=== PATIENT | female | born 1955 | race Caucasian/White ===

== ENCOUNTER → 2016-10-21 | Outpatient (CLI) | payer OTHER ==
--- NOTE | 2016-10-21 09:07 | US ---
EXAMINATION TYPE: US thyroid st tissue head/neck DATE OF EXAM: 10/21/2016 8:29 AM COMPARISON: NONE CLINICAL HISTORY: E04.1 thyroid nodule. GLAND SIZE: Right Lobe: 5.7 x 1.4 x 1.3 cm Overall Parenchyma: homogeneous Left Lobe: 4.7 x 1.5 x 1.2 cm Overall Parenchyma: homogeneous Isthmus Thickness: 0.4 cm NODULES RIGHT: # of nodules measured on right: 1 1. 0.6 X 0.3 x 0.6 cm hypoechoic solid nodule at the lower pole with well-defined margins. This no dule is wider than tall and shows intranodular vascularity. No prior here. LEFT: # of nodules measured on left: 2 1. 0.7 X 0.6 x 0.9 cm anechoic cystic nodule at the upper pole with well-defined margins. This nod ule is wider than tall and shows no intranodular vascularity. 2. 0.9 X 0.7 x 0.7 cm hypoechoic solid nodule at the lower pole with well-defined margins. This nod ule is wider than tall and shows intranodular vascularity. ISTHMUS: # of nodules measured in the isthmus: 2 1. 0.6 X 0.3 x 0.6 cm hypoechoic solid nodule at the right isthmus with well-defined margins. This nodule is wider than tall and shows intranodular vascularity. 2. 1.4 X 0.5 x 1.4 cm isoechoic, anechoic mixed nodule at the left isthmus with well-defined margins . This nodule is wider than tall and shows intranodular vascularity. TECHNOLOGIST IMPRESSION: Bilateral neck scanned, no abnormal lymphadenopathy noted. IMPRESSION: MULTINODULAR GOITER. CONSIDERATION MIGHT BE GIVEN TO BIOPSYING THE LESION IN THE ISTHMUS GREATER THAN 1 CM.
--- NOTE | 2016-10-21 10:00 | ECHOF ---
Referral Reason:R07.69 chest pain MEASUREMENTS -------- HEIGHT: 162.6 cm WEIGHT: 68.0 kg BP: 123/67 RVIDd: 2.1 cm (< 3.3) IVSd: 0.8 cm (0.6 - 1.1) LVIDd: 4.1 cm (3.9 - 5.3) LVPWd: 0.8 cm (0.6 - 1.1) IVSs: 1.2 cm LVIDs: 2.8 cm LVPWs: 1.4 cm LA Diam: 2.6 cm (2.7 - 3.8) LAESV Index (A-L): 14.92 ml/m Ao Diam: 2.8 cm (2.0 - 3.7) AV Cusp: 1.8 cm (1.5 - 2.6) MV EXCURSION: 13.015 mm (> 18.000) MV EF SLOPE: 85 mm/s (70 - 150) EPSS: 0.3 cm MV E Raj: 0.67 m/s MV DecT: 228 ms MV A Raj: 0.79 m/s MV E/A Ratio: 0.85 FINDINGS -------- Sinus rhythm. This was a technically good study. The left ventricular size is normal. Left ventricular wall thickness is normal. Overall left ventricular systolic function is normal with, an EF between 60 - 65 %. The right ventricle is normal in size. Normal LA size by volume 22+/-6 ml/m2. The right atrium is normal in size. Aortic valve is trileaflet and is mildly thickened. Mild mitral annular calcification present. The tricuspid valve appears structurally normal. The pulmonic valve is normal. The aortic root size is normal. Normal inferior vena cava with normal inspiratory collapse consistent with estimated right atrial pressure of 5 mmHg. There is no pericardial effusion. CONCLUSIONS -------- 1. Sinus rhythm. 2. Mild mitral annular calcification present. 3. The tricuspid valve appears structurally normal. 4. The pulmonic valve is normal. 5. The aortic root size is normal. 6. Normal inferior vena cava with normal inspiratory collapse consistent with estimated right atrial pressure of 5 mmHg. 7. There is no pericardial effusion. 8. This was a technically good study. 9. The left ventricular size is normal. 10. Left ventricular wall thickness is normal. 11. Overall left ventricular systolic function is normal with, an EF between 60 - 65 %. 12. The right ventricle is normal in size. 13. Normal LA size by volume 22+/-6 ml/m2. 14. The right atrium is normal in size. 15. Aortic valve is trileaflet and is mildly thickened. LINING BRUSHER: Vannesa Pulido RDCS
--- NOTE | 2016-10-22 12:39 | EST ---
DATE OF SERVICE: 10/21/2016 AGE: 61Y SEX: F HT: 64 WT: 150 lbs. Protocol Randell: X Other: Stage: III Dur. of Exercise: 8 minutes *Heart Rate Blood Pressure *Rest: 75 Rest: 116/80 * *Max. Achieved: 138 Maximum BP: 159/69 85% PMHR: 137 100% PMHR: 161 *METS: 9.1 INDICATIONS: Hypertension. MEDICATIONS: Celexa, Zestril. The patient was exercised for a total period of 8 minutes. A peak heart rate of 138 was achieved. Maximum blood pressure of 159/69 mmHg was noted. Resting EKG shows normal sinus rhythm with normal KS interval and QRS duration and normal ST-T waves. No ST segment depression suggestive of ischemia is noted. Did not complain of any chest pain during the test. FINAL IMPRESSION: 1. This exercise test is not suggestive of ischemia. 2. Patient's exercise tolerance is normal. 3. The patient did not complain of any chest pain during the test.
== END | disposition home or self-care (01) ==
LOC: RADUSMAIN 07:55
PROVIDERS: ATTEND Internal Medicine
DX: E04.2 Nontoxic multinodular goiter (principal); I05.8 Other rheumatic mitral valve diseases; I35.8 Other nonrheumatic aortic valve disorders; R07.89 Other chest pain
CPT/HCPCS: 76536; 93017; 93306

== ENCOUNTER → 2017-02-08 | Outpatient (CLI) | payer OTHER ==
--- NOTE | 2017-02-09 11:14 | MM ---
Reason for exam: screening (asymptomatic). Last mammogram was performed 1 year ago. History: Patient is postmenopausal. Family history of breast cancer in maternal aunt at age 80. Physical Findings: A clinical breast exam by your physician is recommended on an annual basis and results should be correlated with mammographic findings. MG Screening Mammo w CAD Bilateral CC and MLO view(s) were taken. Prior study comparison: January 27, 2016, bilateral MG screening mammo w CAD. January 15, 2015, bilateral MG screening mammo w CAD. December 31, 2013, bilateral MG screening mammo w CAD. December 28, 2012, bilateral digital screening mammo w/CAD. There are scattered fibroglandular densities. There is no discrete abnormality. ASSESSMENT: Negative, BI-RAD 1 RECOMMENDATION: Routine screening mammogram of both breasts in 1 year.
== END | disposition home or self-care (01) ==
LOC: RADMAMWWP 09:12
PROVIDERS: ATTEND Internal Medicine
DX: Z12.31 Encounter for screening mammogram for malignant neoplasm of breast (principal)

== ENCOUNTER → 2017-06-07 | Outpatient (CLI) | payer OTHER ==
--- NOTE | 2017-06-07 22:44 | US ---
EXAMINATION TYPE: US thyroid st tissue head/neck DATE OF EXAM: 06/07/2017 COMPARISON: 10/21/2016 CLINICAL HISTORY: 62-year-old female E04.2 MULTIPLE THYROID NODULES. Patient stated had FNA biopsy of one nodule on each neck side at [place] this year - no cancer detected for available thyroid tissue from FNA TECHNIQUE: Multiple sonographic images of the thyroid gland are obtained. FINDINGS: GLAND SIZE: Right Lobe: 5.1 x 1.7 x 1.7 cm Overall Parenchyma: homogenous Left Lobe: 4.9 x 1.5 x 1.7 cm Overall Parenchyma: homogeneous Isthmus Thickness: 0.5 cm NODULES RIGHT: # of nodules measured on right: 2 largest of multiple 1. 0.6 X 0.6 x 0.3 cm hypoechoic mixed nodule at the lower pole with well-defined margins; present with microcalcifications. This nodule is wider than tall and shows no intranodular vascularity. Prior size: 0.6 x 0.3 x 0.6 cm 2. 0.7 X 0.6 x 0.5 cm hypoechoic mixed nodule at the mid pole with poorly defined margins; present w ith calcifications. This nodule is wider than tall and shows no intranodular vascularity. Prior size: no prior LEFT: # of nodules measured on left: 2 largest of multiple 1. 1.1 X 0.9 x 0.7 cm probable colloid cyst. This nodule is wider than tall and shows no intranodul ar vascularity. Prior size: 0.7 x 0.6 x 0.9 cm 2. 0.9 X 0.6 x 0.6 cm hypoechoic mixed nodule at the lower pole with well-defined margins; present w ith microcalcifications. This nodule is wide as is tall and shows intranodular vascularity. Prior size: 0.9 x 0.7 x 0.7 cm ISTHMUS: # of nodules measured in the isthmus: 2 largest 1. 0.5 X 0.5 x 0.3 cm hypoechoic mixed nodule at the lower pole with well-defined margins; present with microcalcifications. This nodule is wider than tall and shows no intranodular vascularity. Prior size: 0.6 x 0.3 x 0.6 cm 2. 1.0 x 0.5 x 0.5cm hyperechoic cystic nodule at the lower left isthmus with well define margins. Th is nodule is wide as is tall and shows no intranodular vascularity. Prior size: 1.4 x 0.5 x 1.4cm Bilateral neck scanned: normal appearing upper left neck node is imaged. IMPRESSION: Multinodular thyroid gland with the largest nodules measured as above. A 7 mm solid nodule with calci fications in the right midpole appears new and can be followed. Others are either cystic and benign o r largely stable.
== END | disposition home or self-care (01) ==
LOC: RADUSWWP 14:41
PROVIDERS: ATTEND Internal Medicine Endocrinology, Diabetes & Metabolism
DX: E04.2 Nontoxic multinodular goiter (principal); E07.89 Other specified disorders of thyroid
CPT/HCPCS: 76536

== ENCOUNTER → 2017-07-06 | Outpatient (CLI) | payer OTHER ==
--- NOTE | 2017-07-06 22:17 | XR ---
EXAMINATION TYPE: XR knee limited RT DATE OF EXAM: 07/06/2017 CLINICAL HISTORY: Pain down right leg. History of right hip fracture. TECHNIQUE: Two views of the right knee are obtained. COMPARISON: None. FINDINGS: There is no acute fracture/dislocation evident in right knee. Osseous structures are somew hat demineralized. The tri-compartment joint spaces appear within normal limits. A fabella is presen t posteriorly. The overlying soft tissue appears unremarkable. IMPRESSION: There is demineralization otherwise fairly unremarkable study.
--- NOTE | 2017-07-06 22:32 | XR ---
EXAMINATION TYPE: XR lumbosacral spine min 4V DATE OF EXAM: 07/06/2017 CLINICAL HISTORY: Lumbago per order. Back pain extending down right leg per patient. TECHNIQUE: Frontal, lateral, and oblique images of the lumbar spine are obtained. COMPARISON: None FINDINGS: There are 5 lumbar type vertebral bodies identified. The lumbar spine shows satisfactory alignment without evidence of acute fracture or dislocation. Vertebral body heights and disk space he ights are within normal limits. There is mild to moderate multilevel anterior spurring in the upper to mid lumbar spine. Spinous process hypertrophy is seen. There is facet arthropathy lower lumbar le vels. The oblique images appear within normal limits. The overlying soft tissue appears unremarkable . IMPRESSION: Multilevel degenerative changes as detailed above.
== END | disposition home or self-care (01) ==
LOC: RADXRYALE 16:02
PROVIDERS: ATTEND Internal Medicine
DX: M47.817 Spondylosis without myelopathy or radiculopathy, lumbosacral region (principal); M25.561 Pain in right knee
CPT/HCPCS: 72110

== ENCOUNTER → 2017-09-15 | Outpatient (CLI) | payer OTHER ==
[2017-09-15 07:49] LABS: HCT 41.9 % (34.0-46.0); HGB 13.7 gm/dL (11.4-16.0); MCH 32.2 pg (25.0-35.0); MCHC 32.6 g/dL (31.0-37.0); MCV 98.9 fL (80.0-100.0); Mean Platelet Volume 8.1; Platelet Count 210 k/uL (150-450); RBC 4.23 m/uL (3.80-5.40); RDW 13.9 % (11.5-15.5)
[2017-09-15 09:19] LABS: Erythrocyte Sedimentation Rate 4 mm/hr (0-20)
--- NOTE | 2017-09-15 10:00 | MR ---
EXAMINATION TYPE: MR lumbar spine wo con DATE OF EXAM: 09/15/2017 COMPARISON: NONE HISTORY: Low back pain, Pain in R lower limb TECHNIQUE: Multiplanar, multisequence images of the lumbar spine were acquired. FINDINGS: The lumbar spine vertebral bodies maintain normal vertebral body height. There is minimal ( grade 1) anterolisthesis of L4 on L5 without pars interarticularis defects. This is likely on a degen erative basis. Bone marrow signal is unremarkable other than scattered T2/T1 hyperintense vertebral b hali hemangiomas and degenerative endplate changes. Conus medullaris is unremarkable terminating at L1 . Of note the liver is decreased in signal and comparison to the paraspinal musculature on T2-weighted images. This finding could be artifactual given technique a wall hematoma necrosis should be consider ed and correlation with serum laboratory values is recommended. L1-L2: There is a small left eccentric broad-based disc bulge present without significant neural fora ryann narrowing or spinal canal stenosis. L2-L3: There is intervertebral disc desiccation and a broad-based disc bulge that is left eccentric m ildly narrowing the left neural foramen. Right neuroforamen and spinal canal are patent. L3-L4: There is a broad-based disc bulge, right eccentric and mildly narrows the right neural foramen . Spinal canal and left neural foramen are patent. Mild facet arthropathy and ligamentum flavum buckl ing are also noted. L4-L5: There is a large broad-based disc bulge creating mild bilateral neural foraminal narrowing. Li gamentum flavum buckling contributes to mild spinal canal stenosis at this level. Minimal facet arthr opathy is also noted. L5-S1: Small broad-based disc bulge is seen without focal disc herniation. No spinal canal stenosis o r neural foraminal narrowing. Lumbar segments are intact. No paraspinal masses are identified. Conus medullaris has a normal appe arance. IMPRESSION: 1. No focal disc herniation. 2. Mild multilevel degenerative disc disease most significant at L4-L5 resulting in mild bilateral ne ural foraminal narrowing and mild spinal canal stenosis. 3. Eccentric disc bulges at L2-L3 and L3-L4 minimally narrowing the left and right neural foramen res pectively. 4. Incidentally noted diffusely decreased signal on the hepatic parenchyma on T2-weighted images. Thi s finding could be artifactual although consideration should also be given to hemochromatosis and cor relation with serum laboratory values is recommended. 5. Grade 1 anterolisthesis of L4 on L5, likely on a degenerative basis.
--- NOTE | 2017-09-15 11:40 | NM ---
EXAMINATION TYPE: NM bone 3 phase DATE OF EXAM: 09/15/2017 COMPARISON: Radiograph 09/06/2017 HISTORY: 62-year-old female with right hip/thigh pain, patient with partial right hip replacement per formed in July 2014. Technique: Triple phase bone scintigraphy was performed following the injection of27.4 mCi Tc 99m MDP . Immediate and pool images followed by 3.25 hours post injection images acquired. FINDINGS: Flow images show no asymmetric hyperemia. Pool images show photopenia on the right relating to the patient's right hip hemiarthroplasty. Delayed images show some focal increased activity at the right acetabular roof and also at the tip of the femoral stem component. Correlating with patient's radiographs show no significant periprostheti c lucency here. IMPRESSION: 1. Some delayed tracer activity along the right acetabular roof could reflect degenerative change inv olving the teller acetabulum. 2. Additional delayed tracer activity at the tip of the femoral stem component. The lack of activity here on pool and flow images and the lack of periprosthetic lucency on the outside radiographs argue against significant loosening at this site.
== END | disposition home or self-care (01) ==
LOC: RADMRIMAIN 06:36
PROVIDERS: ATTEND Orthopaedic Surgery
DX: M48.061 Spinal stenosis, lumbar region without neurogenic claudication (principal); M99.73 Connective tissue and disc stenosis of intervertebral foramina of lumbar region; M51.36 Other intervertebral disc degeneration, lumbar region; M51.26 Other intervertebral disc displacement, lumbar region; M43.16 Spondylolisthesis, lumbar region; M79.661 Pain in right lower leg
CPT/HCPCS: 85652; 85027; 86140; 72148; 78315; 36415; A9503

== ENCOUNTER → 2017-11-01 | Outpatient (CLI) | payer OTHER ==
[2017-10-31 15:56] VITALS: BMI 24.9
[2017-11-01 11:15] VITALS: BP 139/79; PULSE 113; RESP 16
--- NOTE | 2017-11-01 12:03 | P.HPIM ---
History of Present Illness H&P Date: 11/01/17 Chief Complaint: right hip and thigh pain This is a 62-year-old patient referred by Dr. Mar for chronic pain in right hip and thigh pain that began after a fall and worsened after JERICHO; patient denies any numbness/tingling/burning/ouha-mhh-xeikcfl sensation. Patient underwent partial R JERICHO [place] [address] Rea and since then has had aching sensation in right hip, anterior thigh, and lateral knee. Patient has been taking medications from primary care physician including Motrin medications with some relief. Patient denies adverse drug effects from medications. Patient also denies new-onset weakness, bowel/bladder incontinence , or any other signs or symptoms of cauda equina syndrome. There are no signs of acute intoxication, and no indications of medication diversion or overuse. Patient notes that pain worsens significantly with walking and arising from a kneeling position and improves with heat and medication. Patient has used several types of medications for pain, including NSAIDS, OPIOIDS. Patient HAS had previous R partial JERICHO surgery. Patient HAS NOT had injections previously. Patient HAS had physical therapy recently without relief. In addition to above, 13-point review of systems is also negative for chest pain , shortness of breath, changes in vision, changes in hearing, new onset weakness , abdominal pain, diarrhea, extreme fatigue, malaise, fever, skin changes, homicidal or suicidal ideation, or bowel or bladder incontinence. Vital Signs: Reviewed in EMR Gen: WDWN, AAOx3, NAD HEENT: NCAT, EOMI, hearing grossly normal Pulm: resp unlabored Abd: soft, NT, ND Neck: supple, trachea midline ROM flexion and extension lumbar spine: normal Facet loading: negative SIJ tenderness: negative Lower extremity: decreased ROM in adduction of R hip, TTP with deep palpation over lateral incision on R hip Neuro: CN II-XII grossly intact, muscle strength lower extremities PRESERVED Past Medical History Past Medical History: Hypertension Additional Past Medical History / Comment(s): pain rt thigh History of Any Multi-Drug Resistant Organisms: None Reported Past Surgical History: Section Additional Past Surgical History / Comment(s): D&C, maria dolores.carpal tunnel, hemorrhoid surgery,rt hip surgery Past Anesthesia/Blood Transfusion Reactions: Postoperative Nausea & Vomiting ( PONV) Past Psychological History: No Psychological Hx Reported Smoking Status: Never smoker Past Alcohol Use History: Daily Past Drug Use History: None Reported - Past Family History Mother Family Medical History: COPD Father Family Medical History: COPD Medications and Allergies Home Medications Medication Instructions Recorded Confirmed Type Citalopram Hydrobromide [CeleXA] 40 mg PO DAILY 07/28/14 11/01/17 History Biotin 5,000 mcg PO DAILY 10/31/17 11/01/17 History Calcium Carbonate [Calcium] 2 tab PO DAILY 10/31/17 11/01/17 History Cholecalciferol (Vitamin D3) 2,000 unit PO DAILY 10/31/17 11/01/17 History [Vitamin D3] Cod Liver Oil 2 each PO DAILY 10/31/17 11/01/17 History Garlic 1 each PO DAILY 10/31/17 11/01/17 History Ibuprofen [Motrin] 800 mg PO DAILY PRN 10/31/17 11/01/17 History Lisinopril [Zestril] 20 mg PO DAILY 10/31/17 11/01/17 History Multivitamins, Thera [Multivitamin 1 tab PO DAILY 10/31/17 11/01/17 History (formulary)] tiZANidine [Zanaflex] 4 mg PO BID PRN #60 tab 11/01/17 Rx Allergies Allergy/AdvReac Type Severity Reaction Status Date / Time No Known Allergies Allergy Verified 11/01/17 11:02 Physical Exam Vitals: Vital Signs Pulse Resp BP Pulse Ox 11/01/17 11:03 113 H 16 139/79 99 Intake and Output 10/31/17 11/01/17 11/01/17 22:59 06:59 14:59 Other: Weight 65.771 kg Results Comments: MRI lumbar spine without contrast dated 09/15/2015 demonstrates small left sided eccentric broad-based disc bulge at L1-L2 without significant neural foraminal narrowing or spinal canal stenosis. At the L2-L3 level there is intervertebral disc desiccation and a broad-based disc bulge left eccentric mildly narrowing the left neural foramen. At the L3-L4 level there is a broad- based disc bulge with eccentric and mildly narrowing the right neural foramen. There is mild facet arthropathy and ligamentum flavum buckling also noted. At the L4-L5 level there is a large broad-based disc bulge causing of mild bilateral neural foraminal narrowing with mild spinal canal stenosis. Assessment and Plan (1) Iliotibial band syndrome Current Visit: Yes Status: Chronic Code(s): M76.30 - ILIOTIBIAL BAND SYNDROME, UNSPECIFIED LEG SNOMED Code(s): 991447002 (2) Chronic pain syndrome Current Visit: Yes Status: Chronic Code(s): G89.4 - CHRONIC PAIN SYNDROME SNOMED Code(s): 338809155 (3) Status post hip hemiarthroplasty Current Visit: No Status: Chronic Code(s): Z96.649 - PRESENCE OF UNSPECIFIED ARTIFICIAL HIP JOINT SNOMED Code(s): 254764525 Plan: 1. Explanation: Opioid and psychological risk scores were reviewed. Diagnoses , prognoses, and multiple treatment options including but not limited to physical therapy, interventional therapies, adjuvant medical therapies, narcotic medication therapies, and surgery were discussed with the patient and all questions were answered to the patient's satisfaction. 2. Opioid agreement: no opioids prescribed today 3. Counseling: The patient was counseled extensively on BODY MASS INDEX, EXERCISE. Specifically, the patient was instructed regarding the importance of weight control, and exercise in the context of both chronic pain and overall health. 4. Procedures: Right iliotibial band and/or tensor fascia kelly injection, right anterior thigh TPI 5. Consultations: none for now 6. Investigations: none 7. Medications: Zanaflex 4 mg #60 with one refill 8. Disposition: f/u for procedure as scheduled Time with Patient: Greater than 30
== END | disposition home or self-care (01) ==
LOC: PNWHC3 10:53
PROVIDERS: ATTEND Anesthesiology
DX: G89.4 Chronic pain syndrome (principal); M76.30 Iliotibial band syndrome, unspecified leg; I10 Essential (primary) hypertension; Z96.641 Presence of right artificial hip joint; Z79.899 Other long term (current) drug therapy
CPT/HCPCS: 99211

== ENCOUNTER 2017-11-08 07:21 | Day surgery (SDC) | payer OTHER ==
[2017-11-03 13:40] VITALS: BMI 24.9
[~2017-11-08 07:21] MED LIST: LACTATED RINGERS 1,000 ML IV SCH
[2017-11-08 07:26] VITALS: TEMP 97.6
[2017-11-08] MEDS ORDERED: IV FLUID CONTINUATION 1,000 ML IV ONE (07:51)
--- NOTE | 2017-11-08 07:56 | P.PCN ---
Date of Procedure: 11/08/17 Preoperative Diagnosis: Tensor fascia kelly syndrome Myofascial pain in the right thigh Postoperative Diagnosis: Same as above Procedure(s) Performed: Trigger point injection in the right quadratus for Mariusz muscle and the tensor fascia kelly insertion at the knee level Anesthesia: MAC (IV conscious sedation with 2 mg of Versed and 100 mg of fentanyl) Surgeon: Sabas Adler Pathology: none sent Condition: stable Disposition: PACU Description of Procedure: The patient was seen in preop holding area she did have femur fracture and had a right hemiarthroplasty about 4 years ago and since then she's been having pain in the right thigh with exertion but she denies any resting pain. The patient also denies any paresthesia in the lower extremity. There is no muscular weakness in the right leg. She occasionally gets back pain. The lumbar spine MRI showed some degree of lumbar stenosis at L2-L3 level. The patient's symptoms are not really clear how were doing the trigger point injection today if it does help the patient then we'll repeat this one more time but if it doesn't help the patient then she may benefit from getting lumbar epidural steroid injection under fluoroscopic guidance at the L2-3 level which is also the level that corresponds to the thigh area. The patient was placed in the supine position the skin over the right thigh and the insertion site of the tensor fascia kelly was prepped with the DuraPrep and then I used 1-1/2 inch 25-gauge needle to go into the quadratus for Mariusz muscle pain for sites and injected 1 mL of a solution made up of 8 MLS Marcaine 0.25% and 40 mg of Depo-Medrol. Another injection was done at the insertion of the fascia kelly and the knee level. Patient tolerated procedure well and was transferred back to PACU in stable condition.
[2017-11-08 08:01] VITALS: RESP 18
[2017-11-08 08:16] VITALS: BP 114/73; PULSE 78
== END 2017-11-08 08:34 | disposition home or self-care (01) ==
LOC: ORPAIN 07:21
PROVIDERS: ATTEND Anesthesiology
DX: G89.4 Chronic pain syndrome (principal); M76.31 Iliotibial band syndrome, right leg; M79.1 Myalgia; Z96.649 Presence of unspecified artificial hip joint; I10 Essential (primary) hypertension; Z79.899 Other long term (current) drug therapy
CPT/HCPCS: 20553; J2250; J1030; J3010

== ENCOUNTER → 2017-11-28 | Outpatient (CLI) | payer OTHER ==
[2017-11-28 12:25] VITALS: BP 138/78; PULSE 77; RESP 16
--- NOTE | 2017-11-28 12:50 | P.PN ---
Subjective Progress Note Date: 11/28/17 This is a follow-up visit for this 62 years old female with a chronic history of severe right thigh pain , the pain increases in intensity after the right hip hemiarthroplasty, pain is constant and increases with walking or any activity, the intensity of the pain is 5/10 increased to 8/10 with any activity , he tried physical therapy without any benefit, though she had a trigger point injection fascia kelly trigger point injections without any benefit, and she is here today for follow-up visit and discussion about, and next step, she denies any motor or sensory deficit she denies any change in her bowel movement or urination she denies any fever or night sweats Objective - Vital Signs Vital signs: Vital Signs Temp Pulse 77 11/28/17 12:18 Resp 16 11/28/17 12:18 BP 138/78 11/28/17 12:18 Pulse Ox 100 11/28/17 12:18 Intake & Output 11/27/17 11/28/17 11/28/17 18:59 06:59 18:59 Weight 65.771 kg - Exam Physical Examinations : 1-Constitutiona : Cooperative , not in acute distress . 2-HEENT : nech ; supple , no Lymphadenopathy , normal thyroid size . eyes : no ptosis , no icterus, no photophobia . ENT : normal of hearing , normal oropharynx , no Thrush . 3- Respiratory : Chest clear to auscultations Bilaterally , no wheezing , no Rhonchi . 4- Cardiovascular : regular rate and rhythem , S1 , S2 , no S3 , no S4. 5- Gastrointestinal : abdomen soft no tenderness , bowel sounds positive all four quadrents , no organomegally . 6- Genitourinary : Defferred . 7- neurologic : Cranial nerve II to XII intact , no focal neurological deffecit . 8-psychatric : alert , oriented X 3 , appropriate affect , intact judgment and insight . 9-Lymphatic : no Lymphadenopathy . 10- musculoskeltal : , Lumber spine = normal moter stegnth lower extremities ,thigh and legs .5/5 deep tendon reflexes : normal Knee Jerk , normal ankle Jerk . lumber facet Loading Test negative bilaterally strait leg raising test negative bilaterally Fabere test negative bilaterally Assessment and Plan Plan: Assessment and plan= myofascial pain syndrome, status post trigger point injections patient had no benefit from it. Lumbar degenerative disc disease Lumbar radiculopathy Right L2 3/4 distribution Patient could benefit from lumbar epidural steroid injection at the L2-3 level , right paramedian approach If she had no benefit from the epidural injection and we have to do EMG/nerve conduction studies Time with Patient: Less than 30
== END | disposition home or self-care (01) ==
LOC: PNWHC3 11:38
PROVIDERS: ATTEND Specialist
DX: M51.16 Intervertebral disc disorders with radiculopathy, lumbar region (principal); M79.1 Myalgia; Z98.890 Other specified postprocedural states
CPT/HCPCS: 99211

== ENCOUNTER 2017-11-30 06:14 | Day surgery (SDC) | payer OTHER ==
[2017-11-30 07:11] VITALS: RESP 16; TEMP 97.6
[2017-11-30] MEDS ORDERED: LIDOCAINE 1% 20 ML VIAL (10MG/ML) FOR IV START INTRADERMA ONE (07:22)
[2017-11-30] MEDS ORDERED: LACTATED RINGERS 1,000 ML IV ONE (07:22)
[2017-11-30] MEDS ORDERED: LACTATED RINGERS 1,000 ML IV SCH (08:30)
[2017-11-30] MEDS ORDERED: IV FLUID CONTINUATION 1,000 ML IV ONE (08:34)
[2017-11-30 08:54] VITALS: BP 99/64; PULSE 68
--- NOTE | 2017-11-30 08:54 | P.PCN ---
Surgeon: Shoaib Cardozo Pathology: none sent Condition: stable Disposition: PACU Description of Procedure: PREOPERATIVE DIAGNOSIS: 1-Lumbar radiculitis. POSTOPERATIVE DIAGNOSIS: 1-Lumbar radiculitis. PROCEDURE 1. Lumbar epidural steroid injection under fluoroscopic guidance at the L4-L5 level. 2. Lumbar epidurogram. ANESTHESIA: Local with 1% lidocaine; IV sedation with Versed/fentanyl. EBL: Minimal PROCEDURE INDICATION: The patient with low back pain and radiculitis symptoms unresponsive to conservative treatment. Fluoroscopy was used to optimize visualization of the needle placement and to maximize safety. PROCEDURE DESCRIPTION / TECHNIQUE: The patient was seen and identified in the preoperative area. Risks, benefits, complications, and alternatives were discussed with the patient, including but not limited to bleeding, infection, nerve damage, allergic reactions to medications, and incomplete pain relief. The patient agreed to proceed with the procedure and signed the consent after all questions were answered. IV was started, and vital signs were stable. Patient was taken to the OR and time out was completed to confirm patient position, procedure, laterality of pain, and allergies. The patient was placed in the prone position on procedure table and a pillow was placed under the abdomen to reduce lumbar lordosis. The lumbosacral area was prepped and draped in the usual sterile fashion. Critical pause was taken. Vital signs were closely monitored during the procedure. Conscious sedation was used during the procedure to decrease patients anxiety. Using anterior-posterior fluoroscopy, the L4-L5 interlaminar space was identified and the skin over this site was marked and then infiltrated with 1% lidocaine subcutaneously in a paramedian fashion. Subsequently, a 20-gauge 3.5- inch Tuohy epidural needle was inserted and advanced toward the epidural space using the Loss of resistance technique and guided by AP and lateral fluoroscopy. The correct needle position in the epidural space was verified with the injection of 2 mL of the water soluble contrast dye Isovue 200 contrast and observing an excellent epidurogram with the epidural spread of the dye, after negative aspiration for blood and CSF and in the absence of paresthesias. Again after negative aspiration, a 6 ml mixture containing 80 mg of Depo Medrol and 2 ml of preservative free Normal Saline, and 2 ml of preservative free lidocaine 1% solution was injected and a washout of epidurogram was seen. Needle was withdrawn intact, skin was cleansed, and bandages were applied. COMPLICATIONS: None COMMENTS: DISPOSITION / PLANS: The patient was placed in a supine position and transferred to the recovery area in a stable condition for observation. There was no evidence of lower extremity motor or sensory deficit after the procedure. Patient was discharged from the recovery room after meeting discharge criteria. Home discharge instructions were given to the patient by the staff. The patient was reexamined prior to discharge and there were no issues. The patient will schedule a follow up in the clinic in 2-4 weeks.
--- NOTE | 2017-11-30 14:18 | FL ---
Fluoroscopy INDICATION: Pain FINDINGS: Fluoroscopy time: 7 seconds. Images obtained: 3. IMPRESSIONS: 1. Documentation of fluoroscopy.
== END 2017-11-30 09:13 | disposition home or self-care (01) ==
LOC: ORPAIN 06:14
PROVIDERS: ATTEND Anesthesiology
DX: M51.16 Intervertebral disc disorders with radiculopathy, lumbar region (principal); M79.1 Myalgia
CPT/HCPCS: 62323; J2250; J1030; J3010; Q9966

== ENCOUNTER → 2018-01-02 | Outpatient (CLI) | payer OTHER ==
[2018-01-02 14:20] VITALS: BP 110/59; PULSE 97; RESP 16
--- NOTE | 2018-01-02 14:43 | P.PN ---
Progress Note - Text Progress Note Date: 01/02/18 Patient returns for followup for chronic back pain with radiation to RLE. Patient recently underwent LESI x 1, which provided some relief for interval since procedure. Patient continues on rare tramadol medication for pain with good relief. Patient denies adverse drug effects from medications. Today, pt denies new-onset weakness, bowel/bladder incontinence, or any other signs or symptoms of cauda equina syndrome. There are no signs of acute intoxication, and no indications of medication diversion or overuse. In addition to above, 13-point review of systems is also negative for chest pain , shortness of breath, changes in vision, changes in hearing, new onset weakness , abdominal pain, diarrhea, extreme fatigue, malaise, fever, skin changes, homicidal or suicidal ideation, or bowel or bladder incontinence. Vital Signs: Reviewed in EMR Gen: WDWN, AAOx3, NAD HEENT: NCAT, EOMI, hearing grossly normal Pulm: resp unlabored Abd: soft, NT, ND Neck: supple, trachea midline ROM in flexion lumbar spine: reduced ROM in extension lumbar spine: reduced Lumbar paravertebral tenderness: + Facet loading: + R side SI joint tenderness: neg Farooq's test: + R side Straight leg raise: + RLE at 10 degrees Imaging: Reviewed in EMR Assessment: 1. lumbar radiculitis 2. chronic pain syndrome Plan: 1. Explanation: Opioid and psychological risk scores were reviewed. Diagnoses , prognoses, and multiple treatment options including but not limited to physical therapy, interventional therapies, adjuvant medical therapies, narcotic medication therapies, and surgery were discussed with the patient and all questions were answered to the patient's satisfaction. 2. Opioid agreement: no opioids prescribed 3. Counseling: The patient was counseled extensively on BODY MASS INDEX, EXERCISE. Specifically, the patient was instructed regarding the importance of weight control, and exercise in the context of both chronic pain and overall health. 4. Procedures: LESI #2 L4-L5 5. Consultations: None 6. Investigations: UDS not done today, MAPS queried and appropriate 7. Medications: none prescribed 8. Morphine equivalents per day prescribed: zero 9. Disposition: f/u for procedure as scheduled PQRS measures: 1-Patient's medications are documented in the chart. 2-Tobacco use is negative 3-Patient has not had a pneumococcal vaccine. 4-Advanced care planning discussed, patient unable to give. 5-Opioid contract NOT signed with the patient. 6-Pain positive, follow-up visit or procedure scheduled 7-Patient's blood pressure measured and documented, and patient will follow up with the primary care due to hypertension. 8-Patient's weight was measured, and body mass index ABOVE the normal limits, and counseling was done. Patient instructed to follow up with PCP. 9-Patient WAS NOT identified as an unhealthy alcohol user.
== END | disposition home or self-care (01) ==
LOC: PNWHC3 13:49
PROVIDERS: ATTEND Anesthesiology
DX: G89.4 Chronic pain syndrome (principal); M54.9 Dorsalgia, unspecified; M54.16 Radiculopathy, lumbar region; Z79.891 Long term (current) use of opiate analgesic
CPT/HCPCS: 99211

== ENCOUNTER 2018-01-25 06:47 | Day surgery (SDC) | payer OTHER ==
[2018-01-17 11:48] VITALS: BMI 24.9
[2018-01-25 07:26] VITALS: RESP 16; TEMP 97.7
[2018-01-25] MEDS ORDERED: LIDOCAINE 1% 20 ML VIAL (10MG/ML) FOR IV START INTRADERMA ONE (07:30)
--- NOTE | 2018-01-25 08:19 | P.PCN ---
Date of Procedure: 01/25/18 Anesthesia: other (IV conscious sedation with 2 mg of Versed and 100 g of fentanyl) Surgeon: Sabas Adler Pathology: none sent Condition: stable Disposition: PACU Description of Procedure: PREOPERATIVE DIAGNOSIS: 1-Lumbar radiculopathy 2- Lumber Degenerative Disc Diseases. POSTOPERATIVE DIAGNOSIS: 1-Lumbar radiculopathy. 2-Lumber Degenerative Disc Diseases PROCEDURE 1. Lumbar epidural steroid injection under fluoroscopic guidance at the L3-4 level in the right paramedian approach. 2. Lumbar epidurogram. ANESTHESIA: Local with 1% lidocaine; IV sedation with Versed 2 mg ,and 100 mcg fentanyl EBL: Minimal PROCEDURE INDICATION: The patient with low back pain and radiculitis symptoms unresponsive to conservative treatment. Fluoroscopy was used to optimize visualization of the needle placement and to maximize safety. The patient's pain today is mostly in the right groin and I think injecting at the level of L3 -L4 in the right paramedian approach. PROCEDURE DESCRIPTION / TECHNIQUE: The patient was seen and identified in the preoperative area. Risks, benefits , complications including but not limited to infections ,bleeding ,allergic reaction to the medications ,nerve damage and not complete pain relief , and alternatives were discussed with the patient. The patient agreed to proceed with the procedure and signed the consent. IV was started, and vital signs were stable. Patient was taken to the OR and time out was completed. The patient was placed in the prone position on procedure table and a pillow was placed under the abdomen to reduce lumbar lordosis. The lumbosacral area was prepped and draped in the usual sterile fashion with Betadine 3.Patient was closely monitored during the procedure. Conscious sedation was used during the procedure to decrease patients anxiety. Vital signs were monitered during the entire procedure. Using anterior-posterior fluoroscopy, the L3-4 interlaminar space was identified and the skin over this site was marked and then infiltrated with 1% lidocaine subcutaneously. Subsequently, a 20-gauge Tuohy epidural needle was inserted and advanced toward the epidural space using the Loss of resistance to air technique and guided by AP and lateral fluoroscopy. The correct needle position in the epidural space was verified with the injection of 1 mL of the water soluble contrast dye Omnipaque 180 contrast and observing an excellent epidurogram with the epidural spread of the dye, after negative aspiration for blood and CSF and in the absence of paresthesias. Again after negative aspiration, a 8 ml mixture containing 40 mg of Kenalog and 5 ml of preservative free Normal Saline, and 2 ml of preservative free ropivacaine 0.5% solution was injected and a washout of epidurogram was seen. Needle was withdrawn intact, skin was cleansed, and bandages were applied. patient tolerated procedure well and was transferred to PACU in stable condition. COMPLICATIONS: None
[2018-01-25 08:45] VITALS: BP 102/64; PULSE 70
[2018-01-25] MEDS ORDERED: IV FLUID CONTINUATION 1,000 ML IV ONE (08:51)
--- NOTE | 2018-01-25 08:58 | FL ---
Fluoroscopy INDICATION: Pain FINDINGS: Fluoroscopy time: 6 seconds. Images obtained: 2. IMPRESSIONS: 1. Documentation of fluoroscopy.
== END 2018-01-25 08:54 | disposition home or self-care (01) ==
LOC: ORPAIN 06:47
PROVIDERS: ATTEND Anesthesiology
DX: M51.16 Intervertebral disc disorders with radiculopathy, lumbar region (principal); I10 Essential (primary) hypertension
CPT/HCPCS: 62323; J2250; J3301; Q9966

== ENCOUNTER → 2018-02-13 | Outpatient (CLI) | payer OTHER ==
--- NOTE | 2018-02-13 15:26 | BD ---
EXAMINATION TYPE: Axial Bone Density DATE OF EXAM: 02/13/2018 Height: 64.5 Weight: 146 FRAX RISK QUESTIONS: Alcohol (3 or more units per day): no Family History (Parent hip fracture): yes, mother Glucocorticoids (More than 3mos): no (Ex: prednisone, prednisolone, methylprednisolone, dexamethasone, and hydrocortisone). History of Fracture in Adulthood: yes, right hip (fell from ladder) Secondary Osteoporosis: 1. Type 1 Diabetes: no 2. Hyperthyroidism: no 3. Menopause before 45: no 4. Malnutrition: no 5. Chronic liver disease: no Rheumatoid Arthritis: no Current Tobacco Use: no RISK FACTORS HISTORY OF: Hip Fracture (Right): yes When: 2013 Surgery to Hip(right): yes When: 2013 partial replacement Family History of Osteoporosis: unsure Active: yes Diet low in dairy products/other sources of calcium: no Postmenopausal woman: yes Take estrogen and/or progesterone medications: no Lost more than 2 inches in height since high school: no Frequent falls: no Poor Health: good health except back & hip pain Hyperparathyroidism: no Adrenal Insufficiency: no MEDICATIONS: Prednisone or other steroids: no Thyroid Medications: no Osteoporosis Medications: no Additional Medications: calcium & Vitamin D , blood pressure meds Additional History: back pain-having pain management injections..see spine MRI report 09/15/2017 EXAM MEASUREMENTS: Bone mineral densitometry was performed using the [employer] System. Bone mineral density as measured about the Lumbar spine is: ----- L1-L4(G/cm2): 1.135 T Score Values are as follows: ----- L2: -1.0 ----- L3: -1.1 ----- L4: -0.1 ----- L1-L4: -0.4 Bone mineral density not previously done at this facility; previously done at [facility] Bone mineral density about the L hip (g/cm2): 0.817 T Score values are as follows: -----L Neck: -1.6 -----L Total: -2.0 Bone mineral density not previously done at this facility; previously done at [facility] IMPRESSION: Osteopenia (T Score between -2.5 and -1). There is slightly increased risk of fracture and the patient may be considered for treatment. Re-Screen 2-5 years. NOTE: T-SCORE=SD OF THE YOUNG ADULT MEAN.
--- NOTE | 2018-02-14 08:40 | MM ---
Reason for exam: screening (asymptomatic). Last mammogram was performed 1 year ago. History: Patient is postmenopausal. Family history of breast cancer in maternal aunt at age 80. Physical Findings: A clinical breast exam by your physician is recommended on an annual basis and results should be correlated with mammographic findings. MG Screening Mammo w CAD Bilateral CC and MLO view(s) were taken. Technologist: RT Sean (R)(M) Prior study comparison: February 08, 2017, bilateral MG screening mammo w CAD. January 27, 2016, bilateral MG screening mammo w CAD. There are scattered fibroglandular densities. No significant changes when compared with prior studies. ASSESSMENT: Negative, BI-RAD 1 RECOMMENDATION: Routine screening mammogram of both breasts in 1 year.
== END | disposition home or self-care (01) ==
LOC: RADMAMWWP 06:49
PROVIDERS: ATTEND Internal Medicine
DX: Z12.31 Encounter for screening mammogram for malignant neoplasm of breast (principal); M85.861 Other specified disorders of bone density and structure, right lower leg
CPT/HCPCS: 77067; 77080

== ENCOUNTER → 2019-02-26 | Outpatient (CLI) | payer OTHER ==
--- NOTE | 2019-02-26 11:24 | MM ---
Reason for exam: screening (asymptomatic). Last mammogram was performed 1 year ago. History: Patient is postmenopausal. Family history of breast cancer in maternal aunt at age 80. Physical Findings: A clinical breast exam by your physician is recommended on an annual basis and results should be correlated with mammographic findings. MG Screening Mammo w CAD Bilateral CC and MLO view(s) were taken. Prior study comparison: February 13, 2018, bilateral MG screening mammo w CAD. February 08, 2017, bilateral MG screening mammo w CAD. The breast tissue is heterogeneously dense. This may lower the sensitivity of mammography. No suspicious abnormality. No significant changes when compared with prior studies. ASSESSMENT: Negative, BI-RAD 1 RECOMMENDATION: Routine screening mammogram of both breasts in 1 year.
== END | disposition home or self-care (01) ==
LOC: RADMAMWWP 07:58
PROVIDERS: ATTEND Internal Medicine
DX: Z12.31 Encounter for screening mammogram for malignant neoplasm of breast (principal)
CPT/HCPCS: 77067

== ENCOUNTER → 2020-03-28 | Outpatient (CLI) | payer OTHER ==
--- NOTE | 2020-03-31 09:22 | MM ---
Reason for exam: screening (asymptomatic). Last mammogram was performed 1 year and 1 month ago. History: Patient is postmenopausal. Family history of breast cancer in maternal aunt at age 80. Physical Findings: A clinical breast exam by your physician is recommended on an annual basis and results should be correlated with mammographic findings. MG Screening Mammo w CAD Bilateral CC and MLO view(s) were taken. Prior study comparison: February 26, 2019, bilateral MG screening mammo w CAD. February 13, 2018, bilateral MG screening mammo w CAD. There are scattered fibroglandular densities. There is no discrete abnormality. ASSESSMENT: Negative, BI-RAD 1 RECOMMENDATION: Routine screening mammogram of both breasts in 1 year.
== END | disposition home or self-care (01) ==
LOC: RADMAMWWP 09:12
PROVIDERS: ATTEND Internal Medicine
DX: Z12.31 Encounter for screening mammogram for malignant neoplasm of breast (principal)
CPT/HCPCS: 77067

== ENCOUNTER → 2021-06-03 | Outpatient (CLI) | payer OTHER ==
--- NOTE | 2021-06-04 14:13 | BD ---
EXAMINATION TYPE: Axial Bone Density DATE OF EXAM: 06/03/2021 COMPARISON: NONE CLINICAL HISTORY: Height: 5 FT 5 IN Weight: 171 FRAX RISK QUESTIONS: Alcohol (3 or more units per day): YES Family History (Parent hip fracture): YES Glucocorticoids (More than 3mos): NO (Ex: prednisone, prednisolone, methylprednisolone, dexamethasone, and hydrocortisone). History of Fracture in Adulthood: YES Secondary Osteoporosis: 1. Type 1 Diabetes: NO 2. Hyperthyroidism: NO 3. Menopause before 45: NO 4. Malnutrition: NO 5. Chronic liver disease: NO Rheumatoid Arthritis: NO Current Tobacco Use: NO RISK FACTORS HISTORY OF: Surgery to Spine/Hip(right/left)/Wrist (right/left): RT HIP REPLACEMENT When: 2013 Family History of Osteoporosis: YES Active: YES Diet low in dairy products/other sources of calcium: NO Postmenopausal woman: IN HER 50'S Take estrogen and/or progesterone medications: NO Lost more than 2 inches in height since high school: NO MEDICATIONS: Additional Medications: CELEXA, BLOOD PRESSURE MEDS, VITAMINS Additional History: BILATERAL CARPAL TUNNEL SURG EXAM MEASUREMENTS: Bone mineral densitometry was performed using the [employer] System. Bone mineral density as measured about the Lumbar spine is: ----- L1-L4(G/cm2): 1.110 T Score Values are as follows: ----- L2: -0.9 ----- L3: -1.1 ----- L4: 0.0 ----- L1-L4: -0.6 Bone mineral density has: INCREASED 0.4 % since study of: 2017 Bone mineral density about the L hip (g/cm2): 0.862 T Score values are as follows: -----L Neck: -1.3 -----L Total: -1.9 Bone mineral density has: INCREASED 2.1 % since study of: 2017 IMPRESSION: Osteopenia (T Score between -2.5 and -1). There is slightly increased risk of fracture and the patient may be considered for treatment. Re-Screen 2-5 years. NOTE: T-SCORE=SD OF THE YOUNG ADULT MEAN.
== END | disposition home or self-care (01) ==
LOC: RADMAMWWP 08:25
PROVIDERS: ATTEND Internal Medicine
DX: M85.89 Other specified disorders of bone density and structure, multiple sites (principal); Z78.0 Asymptomatic menopausal state
CPT/HCPCS: 77080

== ENCOUNTER 2021-06-05 08:26 | Day surgery (SDC) | payer OTHER ==
[2021-06-05 09:08] VITALS: RESP 16; TEMP 98.3
[2021-06-05] MEDS ORDERED: LIDOCAINE 1% (10MG/ML) FOR IV START INTRADERMA ONE (09:15)
[2021-06-05] MEDS ORDERED: PROPOFOL 10 MG/ML 20 ML VIAL IV ONE (09:34)
[2021-06-05] MEDS ORDERED: LIDOCAINE 1% INJ 10MG/ML (20 ML MDV) ONE (09:34)
--- NOTE | 2021-06-05 09:54 | P.PCN ---
Date of Procedure: 06/05/21 Preoperative Diagnosis: Screening Postoperative Diagnosis: Diverticulosis Procedure(s) Performed: Colonoscopy Anesthesia: MAC Surgeon: Rose Mary Cosby Pathology: none sent Condition: stable Disposition: same day Indications for Procedure: 66-year-old female presents for screening colonoscopy. Risks, benefits and alternatives were provided to the patient. She did provide consent prior to attending the endoscopy suite. Operative Findings: Diverticulosis Description of Procedure: The patient was brought to the endoscopy suite and placed in left lateral decubitus position and adequate sedation was achieved using conscious sedation. A digital rectal exam was performed and internal hemorrhoids palpated. An endoscope was then placed in the rectum and advanced to the cecum as identified by landmarks including the appendiceal orifice and the ileocecal valve. The prep was good. The colonoscope was then slowly withdrawn, examining for any mucosal malleus. The cecum, ascending, transverse, descending and sigmoid colon were visualized adequately. No large neoplastic lesion was noted. No polyps were noted throughout the colon. Moderate amount of diverticulosis was noted scattered throughout the sigmoid colon. Retroflexion was performed in the rectum and internal hemorrhoids were visible. Excess air was removed, the colonoscope withdrawn and the procedure terminated. The patient was then transferred to the recovery unit in stable condition. Repeat colonoscopy should be performed in 8 years.
[2021-06-05 10:14] VITALS: BP 100/66; PULSE 75
== END 2021-06-05 10:24 | disposition home or self-care (01) ==
LOC: ORWHC2ENDO 08:26
PROVIDERS: ATTEND Surgery
DX: Z12.11 Encounter for screening for malignant neoplasm of colon (principal); K57.30 Diverticulosis of large intestine without perforation or abscess without bleeding; K64.8 Other hemorrhoids; I10 Essential (primary) hypertension; Z98.891 History of uterine scar from previous surgery; Z96.649 Presence of unspecified artificial hip joint; Z98.890 Other specified postprocedural states; Z84.1 Family history of disorders of kidney and ureter; Z79.1 Long term (current) use of non-steroidal anti-inflammatories (NSAID); Z79.899 Other long term (current) drug therapy; M54.50 Low back pain, unspecified
CPT/HCPCS: J2001; J2704; G0121; 45378

== ENCOUNTER → 2021-08-03 | Outpatient (CLI) | payer OTHER ==
--- NOTE | 2021-08-04 09:06 | MM ---
Reason for exam: screening (asymptomatic). Last mammogram was performed 1 year and 4 months ago. History: Patient is postmenopausal. Family history of breast cancer in maternal aunt at age 80. Physical Findings: A clinical breast exam by your physician is recommended on an annual basis and results should be correlated with mammographic findings. MG Screening Mammo w CAD Bilateral CC and MLO view(s) were taken. Prior study comparison: March 28, 2020, bilateral MG screening mammo w CAD. February 26, 2019, bilateral MG screening mammo w CAD. There are scattered fibroglandular densities. There is no discrete abnormality. ASSESSMENT: Negative, BI-RAD 1 RECOMMENDATION: Routine screening mammogram of both breasts in 1 year.
== END | disposition home or self-care (01) ==
LOC: RADMAMWWP 07:13
PROVIDERS: ATTEND Internal Medicine
DX: Z12.31 Encounter for screening mammogram for malignant neoplasm of breast (principal); Z78.0 Asymptomatic menopausal state; Z80.3 Family history of malignant neoplasm of breast
CPT/HCPCS: 77067

== ENCOUNTER → 2021-09-17 | Outpatient (CLI) | payer OTHER ==
[2021-09-17 15:54] LABS: HCT 44.9 % (34.0-46.0); HGB 14.6 gm/dL (11.4-16.0); MCH 32.2 pg (25.0-35.0); MCHC 32.5 g/dL (31.0-37.0); MCV 98.9 fL (80.0-100.0); Mean Platelet Volume 8.2; Platelet Count 216 k/uL (150-450); RBC 4.53 m/uL (3.80-5.40); RDW 13.1 % (11.5-15.5); WBC 6.2 k/uL (3.8-10.6)
[2021-09-17 15:56] LABS: Partial Thromboplastin Time 25.4 sec (22.0-30.0); Prothrombin Time 10.6 sec (9.0-12.0)
[2021-09-17 16:04] LABS: Appearance,Urine Clear (Clear); Bilirubin,Urine Negative (Negative); Blood,Urine Negative (Negative); Color,Urine Light Yellow; Glucose,Urine (UA) Negative (Negative); Ketones,Urine Trace (Negative); Leukocyte Esterase,Urine Trace (Negative); Mucus,Urine Rare /hpf; Nitrite,Urine Negative (Negative); PH, Urine 6.5 (5.0-8.0); Protein,Urine Negative (Negative); RBC,Urine 1 /hpf (0-5); Specific Gravity,Urine 1.013 (1.001-1.035); Urobilinogen,Urine <2.0 mg/dL (<2.0); WBC,Urine 2 /hpf (0-5)
[2021-09-17 23:59] LABS: African American GFR (CKD) 89.5 (60.0-200.0); Albumin 4.6 g/dL (3.8-4.9); Albumin/Globulin Ratio 1.98 (1.60-3.17); Anion Gap 12.4 mmol/L (10.00-18.00); BUN/Creat Ratio 15.88 Ratio (12.00-20.00); Blood Urea Nitrogen 12.8 mg/dL (9.0-27.0); Calcium 9.6 mg/dL (8.7-10.3); Carbon Dioxide 24.1 mmol/L (20.0-27.5); Globulin 2.3 g/dL (1.6-3.3); Non-African American GFR(CKD) 77.2 (60.0-200.0); Total Bilirubin 0.3 mg/dL (0.30-1.20); Total Protein 6.9 g/dL (6.2-8.2)
== END | disposition home or self-care (01) ==
LOC: LABPAT 14:35
PROVIDERS: ATTEND Orthopaedic Surgery
DX: Z01.812 Encounter for preprocedural laboratory examination (principal); M16.11 Unilateral primary osteoarthritis, right hip
CPT/HCPCS: 36415; 80053; 81001; 85027; 85610; 85730; 87070; 93005

== ENCOUNTER 2021-09-25 10:50 | Inpatient (IN) | payer OTHER ==
[2021-09-17 16:24] VITALS: BMI 28.3
[~2021-09-25 10:50] MED LIST changes: +ACETAMINOPHEN TAB 500 MG TAB PO PRN; +DEXAMETHASONE SOD PHOSPHATE 10 MG/ML 1 ML VIAL IV PRN; +DEXAMETHASONE SOD PHOSPHATE 4 MG/ML 1 ML VIAL IV ONE; +DOCUSATE 100 MG CAP PO PRN; +FAMOTIDINE 20 MG/2 ML VIAL IVP PRN; +HYDROmorphone 0.5 MG/0.5 ML SYRINGE IVP PRN; +KETOROLAC 15 MG/ML 1 ML VIAL IVP PRN; -LACTATED RINGERS 1,000 ML IV SCH; +LIDOCAINE 1% (10MG/ML) FOR IV START INTRADERMA PRN; +MIDAZOLAM 2 MG/2 ML VIAL IV PRN; +ONDANSETRON 4 MG/2 ML VIAL IVP ONE; +ONDANSETRON 4 MG/2 ML VIAL IVP PRN; +ROPIVACAINE/EPI/CLONIDINE/KET 50 ML SYRINGE MISCELLANE PRN; +TRANEXAMIC ACID 1,000 MG in SODIUM CHLORIDE 0.9% 100 ML IVPB PRN; +VANCOMYCIN 1,000 MG in SODIUM CHLORIDE 0.9% 250 ML IVPB PRN; +oxyCODONE ER 10 MG TAB.ER.12H PO PRN
[2021-09-25] MEDS: LACTATED RINGERS 1,000 ML IV SCH ×2 (11:50→17:58)
[2021-09-25] MEDS ORDERED: SODIUM CHLORIDE 0.9% IRRIG 1,000 ML BTL IRRIGATION ONE (12:20)
[2021-09-25] MEDS ORDERED: SODIUM CHLORIDE 0.9% 100 ML BAG ONE (12:20)
[2021-09-25] MEDS ORDERED: NEOSTIGMINE 1 MG/ML 10 ML VIAL ONE (12:20)
[2021-09-25] MEDS ORDERED: HEPARIN SODIUM,PORCINE 10,000 UNIT/ML 1 ML VIAL ONE (12:20)
[2021-09-25] MEDS ORDERED: ROCURONIUM 10 MG/ML (5 ML VIAL) IV ONE (12:20)
[2021-09-25] MEDS ORDERED: fentaNYL (PF) 50 MCG/ML 2 ML AMP ONE (12:20)
[2021-09-25] MEDS ORDERED: LIDOCAINE 1% INJ 10MG/ML (20 ML MDV) ONE (12:20)
[2021-09-25] MEDS ORDERED: TRANEXAMIC ACID 1,000 MG/10 ML VIAL ONE (12:20)
[2021-09-25] MEDS ORDERED: PROPOFOL 10 MG/ML 20 ML VIAL IV ONE (12:20)
[2021-09-25] MEDS ORDERED: GLYCOPYRROLATE 0.2 MG/ML 2 ML VIAL ONE (12:20)
[2021-09-25] MEDS ORDERED: SUCCINYLCHOLINE CHLORIDE 100 MG/5 ML SYR IV ONE (12:20)
[2021-09-25] MEDS ORDERED: HYDROmorphone (PF) 1 MG/ML ONE (12:20)
[2021-09-25] MEDS ORDERED: MIDAZOLAM 2 MG/2 ML VIAL ONE (12:20)
[2021-09-25] MEDS ORDERED: ePHEDrine 50 MG/ML 1 ML VIAL ONE (12:20)
[2021-09-25] MEDS ORDERED: TRANEXAMIC ACID 1,000 MG in SODIUM CHLORIDE 0.9% 100 ML IVPB ONE (13:04)
[2021-09-25] MEDS ORDERED: LACTATED RINGERS 1,000 ML IV ONE (15:11)
[2021-09-25] MEDS ORDERED: VANCOMYCIN 1,000 MG VIAL MISCELLANE ONE ×2 (15:48→16:02)
[2021-09-25] MEDS ORDERED: TOBRAMYCIN SULFATE 1.2 GM VIAL IRRIGATION ONE (16:02)
--- NOTE | 2021-09-25 16:19 | XR ---
Fluoroscopy HISTORY: Hip replacement 64 seconds fluoroscopy time supplied to the referring clinician. 7 intraoperative C-arm images docum ent the procedure. See dictated report from orthopedic surgery.
[2021-09-25] MEDS ORDERED: SODIUM CHLORIDE 0.9% 100 ML with ceFAZolin 2,000 MG IV ONE ×2 (16:39)
[2021-09-25] MEDS ORDERED: HYDROmorphone 1 MG/ML 1 ML SYRINGE IVP PRN (17:01)
[2021-09-25] MEDS ORDERED: hydrOXYzine pamoate 25 MG CAP PO PRN (17:01)
[2021-09-25] MEDS ORDERED: HYDROmorphone 0.2 MG/1 ML SYRINGE IVP PRN (17:01)
[2021-09-25] MEDS ORDERED: NALOXONE 0.4 MG/ML 1 ML VIAL IV PRN (17:01)
[2021-09-25] MEDS ORDERED: HYDROmorphone 0.5 MG/0.5 ML SYRINGE IVP PRN (17:01)
--- NOTE | 2021-09-25 17:43 | P.OP ---
Date of Procedure: 09/25/21 Preoperative Diagnosis: 1. Aseptic loosening right hip hemiarthroplasty 2. Painful right hip hemiarthroplasty Postoperative Diagnosis: Same Procedure(s) Performed: 1. Right revision total hip arthroplasty (femoral and acetabular revision) 2. Application of negative pressure incisional wound VAC measuring 30 cm Implants: 1. [place] yazidi modular 155 x 16 mm distal stem 2. [place] yazidi modular standard 19 mm +0 proximal body 3. [place] bipolar femoral head 38 mm outer diameter, 22.2 mm inner diameter, +0 neck 4. [place] Trident II Tritanium multi hole 50 mm cup with 3 screws Anesthesia: GETA Surgeon: Marquez Marmolejo Dough Machine Operator #1: Tasha Love Estimated Blood Loss (ml): 900 IV fluids (ml): 1,600 Urine output (ml): 400 Pathology: other (Deep cultures) Condition: stable Disposition: PACU Indications for Procedure: The patient is a very pleasant 66-year-old female who underwent a right hip hemiarthroplasty by another physician several years ago for displaced femoral neck fracture. She has had groin and thigh pain almost since surgery. She has been seen by multiple different pain providers due to the pain in her groin and thigh. She came to see me in the office or x-rays showed acetabular erosion, a pedestal in the femur and reactive bone all suggestive of a septic loosening of her femoral stem. The patient had inflammatory markers to rule out periprosthetic joint infection which were all normal. I met with the patient and her to discuss surgery. My recommendation was to revise her painful hemiarthroplasty to a total hip replacement. We discussed needing to revise both the femoral stem and place a socket. We discussed the potential risks and complications of surgery including but certainly not limited to risks from anesthesia, superficial infection, deep periprosthetic joint infection, damage to local blood vessels or nerves, delayed wound healing, intraoperative fracture, postoperative fracture, subsidence of revision implant, dislocation, leg length discrepancy, continued or worsened pain, need for further surgery, DVT, PE, other medical complications, and possibly loss of life or limb. The patient and her voiced their understanding of these potential complications and also acknowledges that other less common Locations or possible. They also understand that revision surgery has a higher risk of complications particularly infection, wound healing problems, and instability. They provided their consent to go forward with surgery. Operative Findings: Aseptic loosening of the femoral implant which was grossly loose. No sign of infection. Description of Procedure: The patient was identified in preoperative holding and the correct right leg was marked with my initials. I reviewed the consent form with the patient and her . All their questions were answered. The patient was then brought back to the operating room by anesthesia. She was positioned on the gurney where general anesthetic, preoperative antibiotics, and TXA were given. Once the patient was under anesthesia I felt her leg lengths and she felt short on the operative right side. The skin over the right hip shaved. Well-padded boots were then placed on both feet. The patient was carefully transferred onto the hand table. A perineal post was placed. The arms were placed on arm holders. All bony prominences were well-padded. An sterile drapes were applied. Prior to surgery timeout was performed identifying the correct patient, operative extremity, and procedure. At this point preoperative fluoroscopy images were taken with a metallic bar placed over the ischium to use as an intraoperative reference of leg length. Due to the patient both subjectively and objectively feeling short our goal was to lengthen her right leg. The right leg was then prepped and draped in the standard sterile fashion. Prior to starting surgery second timeout was performed identifying the correct patient, operative extremity, and procedure. I began by making an accessory lateral incision just distal to the tip of the stem. Skin incision was made with a scalpel and dissection was carried down carefully through subcutaneous tissue with cautery. The fascia was incised longitudinally in line with the skin incision. I then bluntly dissected through the vastus lateralis muscle fibers controlling perforators with bipolar sealant. The lateral cortex of the femur was then identified. Taking care to stay directly against the cortex of the femur a soft tissue wire passer was placed around the femur. A wire was then placed, tightened, crimped, and cut. The wound was thoroughly irrigated and closed in layers. Attention was then turned to the hip. A standard direct anterior incision was marked out using the ASIS as a reference. A skin incision was made with a scalpel and dissection was carried proximally along the crest of the pelvis. Dissection was carried down to the fascia was was split in line with the skin incision. I then bluntly developed the interval between the tensor and sartorius. Proximally the tensor was taken down off the outer table of the pelvis. Dissection was then carried to the floor the tensor fascia. The circumflex vessels were identified and controlled. Pre-capsular fat was then removed. A capsulotomy was then performed. Tissue was sent for cultures but there was no purulence. Superior and inferior capsular flaps were elevated. Traction was pulled on the leg and the femoral head was removed from the t runnion with a bone tamp and mallet. The trunnion was then dislocated from the head using longitudinal traction and external rotation to the table. The head was removed. The proximal femur was then circumferentially exposed, released and the leg was dropped. Retractors were placed. The stem was circumferentially exposed and worked with a pencil tip bur. It was found to be grossly loose and was easily removed. Fibrous tissue from within the canal was sent for cultures. A pedestal was noted distally. The pedestal was bypassed starting with a drill bit and then flexible reamers. I then reamed for a reamed tapered stem until a 16 mm reamer had excellent fit. The reamer was left in the femur and fluoroscopy was used to take orthogonal views to verify both the depth of insertion and size of the reamer. The reamer was then removed and the canal was thoroughly irrigated. The final stem was then dispensed and gently tapped in place using the insertion handle and greater trochanter as a reference. The stem had excellent fit. Attention was then turned to the acetabulum. The acetabulum was circumferentially exposed and remnants of the labrum and pulvinar removed with electrocautery. I then sequentially reamed until a 49 mm reamer generated chatter and there was circumferential bleeding cancellous bone. The rim was hit with a 50 mm reamer and a 50 mm cup was dispensed. The socket was irrigated. The cup was gently tapped into place and fluoroscopy was used after each her AP pelvis compared to the standing AP in the office was obtained. I manipulated inclination and version and the cup was fully seated with an excellent bite. The press fit was augmented with 3 screws. A dual mobility liner was then placed after the wound was thoroughly irrigated. Both the cup a nd the dual mobility liner felt stable. The femur was once again exposed. I reamed for proximal body and a trial proximal body and head was applied. The hip was gently reduced and felt stable to external rotation to 90. Fluoroscopy was brought in to verify position of the implants and to take measurements in length and offset. The hip was then carefully dislocated. The final body was dispensed. The wound was thoroughly irrigated and the final implants were tapped into place. Prior to final reduction the wound was thoroughly irrigated using pulsatile lavage. Under direct visualization the hip was reduced. Once again the final implants appeared stable to external rotation to 90. There was adequate tension and the gluteal sling. Final fluoroscopic images were taken. The wound was then thoroughly irrigated with sterile saline. It was soaked for 3 minutes the dilute Betadine soaked followed by a chlorhexidine wash. 3 L of sterile saline was then irrigated through the wound using pulsatile lavage. Local anesthetic was infiltrated around the soft tissue. A deep drain was placed. Proximally the tensor was repaired back to the iliac crest. 2 g of vancomycin powder and 1 g of tobramycin was placed in the deep soft tissue. The wound was then closed in layers. The skin wound was reinforced with 2-0 nylon vertical mattress sutures. Due to this being a revision an incisional wound VAC was applied and the lengthy incision measured 30 cm. A Hemovac drain was applied. All instrument, sponge, and sharp counts were correct. The patient was then awoken from her anesthetic, transferred off the [place] table to a gurney where her leg lengths felt close to even and she was brought to recovery having tolerated the procedure well. During the procedure Cell Saver was utilized. A total of 900 blood loss was recorded and 600 was re-administered to the patient. Tasha Love PA-C was required as a skilled assistant press operator offset for patient positioning, surgical exposure, retraction, placement of hardware, closure of wound, and application of dressing. Plan: The patient will be admitted under my care. She is to be toe-touch weightbearing on her right leg for for 6 weeks due to her revision stem. Global hip precautions. 2 doses of IV postoperative antibiotics followed by 6 weeks of oral suppressive antibiotics due to this being a revision. We will follow culture results although there is no sign of periprostatic joint infection. DVT prophylaxis with aspirin 81 mg twice a day 4 weeks. Discharge planning. She will need x-rays in the office at her first 2 week postoperative appointment. These images can be nonweightbearing including an AP pelvis and x-rays of the right femur.
[2021-09-25] MEDS: ASPIRIN 81 MG PO SCH (22:05)
[2021-09-25] MEDS: SENNOSIDES-DOCUSATE SODIUM 1 EACH TAB PO SCH (22:05)
[2021-09-25] MEDS: HYDROcodone/APAP 5-325MG 1 EACH TAB PO PRN (22:23)
[2021-09-25] MEDS: ONDANSETRON 4 MG/2 ML VIAL IVP PRN (22:25)
[2021-09-26] MEDS: LACTATED RINGERS 1,000 ML IV SCH ×2 (04:28→06:18)
[2021-09-26] MEDS: HYDROcodone/APAP 5-325MG 1 EACH TAB PO PRN ×3 (04:33→19:05)
[2021-09-26] MEDS: ONDANSETRON 4 MG/2 ML VIAL IVP PRN (07:37)
[2021-09-26] MEDS: ASPIRIN 81 MG PO SCH ×2 (08:19→20:04)
[2021-09-26] MEDS ORDERED: MELOXICAM 7.5 MG TAB PO SCH (09:00)
[2021-09-26 09:07] LABS: ALT 29 U/L (4-34); AST 68 U/L (14-36); African American GFR (CKD) 81 (>60 ml/min/1.73 sqM); Albumin 2.6 g/dL (3.5-5.0); Albumin/Globulin Ratio 1.2; Alkaline Phosphatase 35 U/L (38-126); Anion Gap 1 mmol/L; Basophils # (A) 0.02 X 10*3/uL (0.00-0.10); Basophils % (A) 0.1 %; Blood Urea Nitrogen 17 mg/dL (7-17); Calcium 7.7 mg/dL (8.4-10.2); Carbon Dioxide 23 mmol/L (22-30); Chloride 108 mmol/L (98-107); Eosinophils # (A) 0 X 10*3/uL (0.04-0.35); Eosinophils % (A) 0 %; Globulin 2.2 g/dL; Glucose 114 mg/dL (74-99); HCT 31.8 % (37.2-46.3); HGB 10.2 g/dL (12.0-15.0); Immature Grans, Automated 0.4 %; Lymphocytes # (A) 0.97 X 10*3/uL (0.90-5.00); Lymphocytes % (A) 7.2 %; MCH 31.6 pg (27.0-32.0); MCHC 32.1 g/dL (32.0-37.0); MCV 98.5 fL (80.0-97.0); Magnesium 1.4 mg/dL (1.6-2.3); Mean Platelet Volume 11.1 fL (9.5-12.2); Monocytes # (A) 1.05 X 10*3/uL (0.20-1.00); Monocytes % (A) 7.8 %; NRBC Per 100 WBC 0 /100 WBCS (0.0-0.0); Neutrophils # (A) 11.34 X 10*3/uL (1.80-7.70); Neutrophils % (A) 84.5 %; Non-African American GFR(CKD) 70 (>60 ml/min/1.73 sqM); Platelet Count 169 X 10*3/uL (140-440); Potassium 4.4 mmol/L (3.5-5.1); RBC 3.23 X 10*6/uL (4.10-5.20); RDW 13.4 % (11.5-14.5); Sodium 132 mmol/L (137-145); Total Bilirubin 0.4 mg/dL (0.2-1.3); Total Protein 4.8 g/dL (6.3-8.2); WBC 13.43 X 10*3/uL (4.50-10.00)
[2021-09-26] MEDS ORDERED: Magnesium Replacement Protocol 1 EACH MISC MISCELLANE PRN (09:34)
--- NOTE | 2021-09-26 09:49 | P.PN ---
Subjective Progress Note Date: 09/26/21 This patient is a 66-year-old female who is status-post right revision total hip arthroplasty on 09/25/21. Today is post-operative day #1. The patient is seen and examined bedside with Dr. Marmolejo. Per nursing, the A team was called on the patient earlier this morning due to hypotension. Patient states she was not feeling well and was nauseated, blood pressure was noted to be in 60s systolic. Internal medicine was paged, the patient was given an IV bolus with improvement in her blood pressure. Patient was also given Zofran. At this time, the patient states she is feeling better. Hemoglobin is 10.2 this morning. She denies chest pain, shortness of breath. She denies pain in the right hip. Objective - Vital Signs Vital signs: Vital Signs Temp 97.7 F 09/26/21 02:19 Pulse 95 09/26/21 08:00 Resp 14 09/26/21 08:00 BP 73/45 09/26/21 08:00 Pulse Ox 97 09/26/21 08:00 Intake & Output 09/25/21 09/26/21 09/26/21 18:59 06:59 18:59 Intake Total 2200 Output Total 1075 450 Balance 1125 -450 Weight 78.2 kg Intake: IV 2200 Output: Urine 175 450 Estimated Blood Loss 900 Other: Voiding Method Indwelling Catheter - Exam On examination, the patient is sitting up in bed in no apparent distress. She is alert and oriented 3. On inspection of the right hip, there is a wound VAC in place that has a good seal at this time. There is also a Hemovac drain in place. The thigh is soft and compressible. Patient is good strength and range of motion of the right ankle. Motor and sensory function is intact of the right lower extremity. Dorsalis pedis pulse is easily palpable. Right lower extremity is warm and well-perfused. Calf is soft nontender to palpation. - Labs CBC & Chem 7: 09/26/21 04:54 09/26/21 04:54 Labs: Abnormal Lab Results - Last 24 Hours (Table) 09/26/21 09/26/21 Range/Units 04:54 04:54 WBC 13.43 H (4.50-10.00) X 10*3/uL RBC 3.23 L (4.10-5.20) X 10*6/uL Hgb 10.2 L (12.0-15.0) g/dL Hct 31.8 L (37.2-46.3) % MCV 98.5 H (80.0-97.0) fL Immature Gran # 0.05 H (0.00-0.04) X 10*3/uL Neutrophils # 11.34 H (1.80-7.70) X 10*3/uL Monocytes # 1.05 H (0.20-1.00) X 10*3/uL Eosinophils # 0 L (0.04-0.35) X 10*3/uL Sodium 132 L (137-145) mmol/L Chloride 108 H (98-107) mmol/L Glucose 114 H (74-99) mg/dL Calcium 7.7 L (8.4-10.2) mg/dL Magnesium 1.4 L (1.6-2.3) mg/dL AST 68 H (14-36) U/L Alkaline Phosphatase 35 L (38-126) U/L Total Protein 4.8 L (6.3-8.2) g/dL Albumin 2.6 L (3.5-5.0) g/dL Microbiology - Last 24 Hours (Table) 09/25/21 16:41 Gram Stain - Preliminary Hip - Right Tissue Culture - Preliminary 09/25/21 16:41 Gram Stain - Preliminary Leg - Right Tissue Culture - Preliminary 09/25/21 16:41 Anaerobic Culture - Preliminary Hip - Right 09/25/21 16:41 Anaerobic Culture - Preliminary Leg - Right Assessment and Plan Assessment: Status-post right revision total hip arthroplasty on 09/25/21. Post-operative day #1. Plan: - Patient may toe-touch weight-bear on the right lower extremity with a walker. - Physical therapy for gait and balance training. Physical therapy did not evaluate the patient this morning, due to hypotension. May re-evaluate when patient is able to tolerate. - Keep wound VAC in place. Keep Hemovac drain in place. - Pain management as needed. - Appreciate internal medicine recommendations for hypotension. IV fluids per internal medicine. - Aspirin 81 mg twice a day for DVT prophylaxis. - Postoperative IV antibiotics complete. Patient will begin doxycycline 100 mg twice a day for 6 weeks for wound healing prophylaxis. - Case management is consulted for discharge planning. Patient will require wound VAC at discharge.
[2021-09-26] MEDS: SODIUM CHLORIDE 0.9% 1,000 ML IV SCH ×2 (13:19→22:15)
--- NOTE | 2021-09-26 13:31 | P.CONS ---
History of Present Illness - History of Present Illness This is a pleasant 66 years old female with past medical history of hypertens ion, osteoarthritis of the joints, status post right hip replacement, and she drinks about 3 beers daily but she denies smoking. She was admitted yesterday for her right hip prosthesis replacement after her initial surgery about 5-6 years ago she continued to have pain in her right with evidence of a septic loosening of the right hip hemiarthroplasty. She had her surgery yesterday and today's postop day #1 for her right revision of the total hip arthroplasty She tolerated the procedure well, this morning she was trying to get up to get her foot and breakfast when she felt dizzy and lightheaded and she had to lie down, her blood pressure was low 91/57. She received 2 L of normal saline Repeat blood pressure is 85/40s. Patient still feeling lightheaded after 2 L of normal saline. Change her Ringer lactate to normal saline at 1 50 mL/h. Patient other than that she denies any chest pain or dyspnea. No abdominal pain. No vomiting. She has one episode of vomiting this morning. No weakness or numbness or blurred vision. Patient states that she has history of hypertension and at certain times she feels lightheadedness, she takes losartan 40 mg daily, she checked her blood pressure with her PCP prior to the surgery and was 110 for systolic BP. Her blood pressure still on the low side therefore we are going to consult cardiology team. Repeat troponin, lactic acid, cortisone/ACTH, we will check a d-dimer as well. Discussed with Dr. Anthony currently we'll come and see the patient as well Review of Systems CONSTITUTIONAL: No fever, no malaise, no fatigue. HEENT: No recent visual problems or hearing problems. Denied any sore throat. CARDIOVASCULAR: No orthopnea, PND, no palpitations, no syncope. PULMONARY: No shortness of breath, no cough, no hemoptysis. GASTROINTESTINAL: No diarrhea, no nausea, no vomiting, no abdominal pain. Normoactive bowel sounds. NEUROLOGICAL: No headaches, no weakness, no numbness. HEMATOLOGICAL: Denies any bleeding or petechiae. GENITOURINARY: Denies any burning micturition, frequency, or urgency. MUSCULOSKELETAL/RHEUMATOLOGICAL: Denies any joint pain, swelling, or any muscle pain. ENDOCRINE: Denies any polyuria or polydipsia. Past Medical History Past Medical History: Hypertension, Musculoskeletal Disorder Additional Past Medical History / Comment(s): pain rt thigh History of Any Multi-Drug Resistant Organisms: None Reported Past Surgical History: Section, Joint Replacement Additional Past Surgical History / Comment(s): C-S x2, D&C, bilat carpal tunnel, hemorrhoid surgery, rt hip partial replacement, colonoscopy Past Anesthesia/Blood Transfusion Reactions: Postoperative Nausea & Vomiting (PONV) Additional Past Anesthesia/Blood Transfusion Reaction / Comm: PONV w/ general anesthesia Past Psychological History: Anxiety Smoking Status: Never smoker Past Alcohol Use History: Daily, Heavy Additional Past Alcohol Use History / Comment(s): 2-3 BEERS DAILY Past Drug Use History: None Reported - Past Family History Mother Family Medical History: No Reported History Father Family Medical History: COPD Medications and Allergies Home Medications Medication Instructions Recorded Confirmed Type RX: Citalopram Hydrobromide 40 mg PO QAM 07/28/14 09/25/21 History [CeleXA] RX: Biotin [Biotin Disolve] 5,000 mcg PO DAILY 10/31/17 09/25/21 History RX: Calcium Carbonate [Calcium] 600 mg PO BID 10/31/17 09/25/21 History RX: Cholecalciferol (Vitamin D3) 1,000 unit PO BID 10/31/17 09/25/21 History [Vitamin D3] RX: Cod Liver Oil 2 each PO DAILY 10/31/17 09/25/21 History RX: Garlic 1 each PO DAILY 10/31/17 09/25/21 History RX: Ibuprofen [Motrin] 800 mg PO TID PRN 10/31/17 09/25/21 History RX: Multivitamins, Thera 1 tab PO DAILY 10/31/17 09/25/21 History [Multivitamin (formulary)] RX: lisinopriL [Zestril] 20 mg PO BID 10/31/17 09/25/21 History Alendronate Sodium [Fosamax] 70 mg PO ROLLE 09/17/21 09/25/21 History Diclofenac Sodium [Voltaren] 75 mg PO BID 30 Days #60 tab 09/25/21 Rx Docusate [Colace] 100 mg PO BID #60 capsule 09/25/21 Rx RX: Aspirin 81 mg PO BID 30 Days #60 tab 09/25/21 Rx RX: Doxycycline Monohydrate 100 mg PO BID 42 Days #84 cap 09/25/21 Rx RX: Omeprazole 40 mg PO DAILY 30 Days #30 cap 09/25/21 Rx Allergies Allergy/AdvReac Type Severity Reaction Status Date / Time No Known Allergies Allergy Verified 09/25/21 11:17 Physical Exam Vitals: Vital Signs Temp Pulse Pulse Resp BP Pulse Ox 09/26/21 08:00 95 14 73/45 97 09/26/21 02:19 97.7 F 92 16 93/58 97 09/25/21 21:00 89 97/63 96 09/25/21 20:45 88 94/62 95 09/25/21 20:30 85 90/59 95 09/25/21 20:15 90 94/60 94 L 09/25/21 20:00 85 90/59 95 09/25/21 19:45 72 94/62 98 09/25/21 19:30 90 91/57 92 L 09/25/21 19:15 89 92/61 95 09/25/21 19:00 85 91/60 96 09/25/21 17:51 80 16 102/58 100 09/25/21 17:36 83 16 100/59 100 09/25/21 17:21 80 16 109/65 100 09/25/21 17:06 87 16 110/69 100 09/25/21 16:51 98.1 F 96 16 116/69 100 Intake and Output 09/25/21 09/26/21 09/26/21 22:59 06:59 14:59 Intake Total 1150 Output Total 1075 450 Balance 75 -450 Intake: IV 1150 Output: Urine 175 450 Estimated Blood Loss 900 Other: Voiding Method Indwelling Catheter Indwelling Catheter Weight 78.2 kg GENERAL: The patient is alert and oriented x3, not in any acute distress. Well developed, well nourished. HEENT: Pupils are round and equally reacting to light. EOMI. No scleral icterus. No conjunctival pallor. Normocephalic, atraumatic. No pharyngeal erythema. No thyromegaly. CARDIOVASCULAR: S1 and S2 present. No murmurs, rubs, or gallops. PULMONARY: Chest is clear to auscultation, no wheezing or crackles. ABDOMEN: Soft, nontender, nondistended, normoactive bowel sounds. No palpable organomegaly. MUSCULOSKELETAL: No joint swelling or deformity. EXTREMITIES: No cyanosis, clubbing, or pedal edema. NEUROLOGICAL: Gross neurological examination did not reveal any focal deficits. SKIN: No rashes. No petechiae Results CBC & Chem 7: 09/26/21 04:54 09/26/21 04:54 Labs: Abnormal Lab Results - Last 24 Hours (Table) 09/26/21 09/26/21 Range/Units 04:54 04:54 WBC 13.43 H (4.50-10.00) X 10*3/uL RBC 3.23 L (4.10-5.20) X 10*6/uL Hgb 10.2 L (12.0-15.0) g/dL Hct 31.8 L (37.2-46.3) % MCV 98.5 H (80.0-97.0) fL Immature Gran # 0.05 H (0.00-0.04) X 10*3/uL Neutrophils # 11.34 H (1.80-7.70) X 10*3/uL Monocytes # 1.05 H (0.20-1.00) X 10*3/uL Eosinophils # 0 L (0.04-0.35) X 10*3/uL Sodium 132 L (137-145) mmol/L Chloride 108 H (98-107) mmol/L Glucose 114 H (74-99) mg/dL Calcium 7.7 L (8.4-10.2) mg/dL Magnesium 1.4 L (1.6-2.3) mg/dL AST 68 H (14-36) U/L Alkaline Phosphatase 35 L (38-126) U/L Total Protein 4.8 L (6.3-8.2) g/dL Albumin 2.6 L (3.5-5.0) g/dL Microbiology - Last 24 Hours (Table) 09/25/21 16:41 Gram Stain - Preliminary Hip - Right Tissue Culture - Preliminary 09/25/21 16:41 Gram Stain - Preliminary Leg - Right Tissue Culture - Preliminary 09/25/21 16:41 Anaerobic Culture - Preliminary Hip - Right 09/25/21 16:41 Anaerobic Culture - Preliminary Leg - Right Assessment and Plan Assessment: History of osteoarthritis status post painful aseptic loosening of the right hip hemiarthroplasty. Admitted for revision of the right total hip arthroplasty. Postop hypotension History of hypertension Possible alcohol abuse Plan: This is a pleasant 66 years old female with right hip surgery and postop hypertension She is status post 2 L of normal saline, continue with normal saline at 1 50 mL/h Julio troponin, d-dimer, cortisol/ACTH and lactic acid cardiology consult Labs and medication were reviewed.. Continue same treatment. Continue with symptomatic treatment. Resume home medication. Monitor lytes and vitals. DVT prophylaxis deferred to orthopedic team . Further recommendations depends on the clinical course of the patient DVT prophylaxis: On aspirin twice a day per orthopedic team GI Prophylaxis: Pepcid PT/OT: Pending Prognosis is guarded
[2021-09-26] MEDS: HYDROCORTISONE SUCCINATE 100 MG/2 ML VIAL IV SCH ×3 (14:03→23:54)
[2021-09-26] MEDS: MAGNESIUM SULFATE-D5W PMX 1 GM in DEXTROSE/WATER 1 100ML.BAG IVPB SCH ×3 (14:03→15:53)
[2021-09-26] MEDS ORDERED: SODIUM CHLORIDE 0.9% 1,000 ML IV ONE (14:09)
--- NOTE | 2021-09-26 14:18 | P.CRDCN ---
History of Present Illness Consult date: 09/26/21 History of present illness: The patient is a pleasant 66-year-old female patient with a past medical history significant for hypertension and also osteoarthritis who was admitted to the hospital and underwent right hip surgery yesterday. The surgery itself was uneventful. We consulted to see the patient for further evaluation of low blood pressure. The patient was experiencing symptoms of being dizzy and lightheaded. The blood pressure was checked and came in to be abnormal and below 90 mmHg systolic. Beside that the patient was not experiencing any symptoms of heart racing or fluttering or any chest pain or chest discomfort or shortness of breath. She has no history of coronary artery disease or congestive heart failure or cardiac arrhythmia. She does have hypertension and she is on medication for that as an outpatient. On examination she is slightly tachycardic. An EKG was ordered stat at is in process to be done. We'll follow-up on that. First set of troponin was checked and that came in to be unremarkable. The patient need to undergo 2 more sets of troponin to rule out any acute coronary event. Also pulmonary embolism to be ruled out since she had surgery yesterday. She received IV fluid and she received a bolus of 150 cc but she continues to be hypotensive and I'm going to give her another 150 mL of 0.9 normal saline. Beside that I'm going to obtain stat echocardiogram to rule out any pericardial effusion and to assess the left ventricle systolic function as well. I also advised the patient to be transferred to the intensive care unit for closer monitoring at least till her systolic pressure above 90 the meter mercury. We will continue following up with her Past Medical History Past Medical History: Hypertension, Musculoskeletal Disorder Additional Past Medical History / Comment(s): pain rt thigh History of Any Multi-Drug Resistant Organisms: None Reported Past Surgical History: Section, Joint Replacement Additional Past Surgical History / Comment(s): C-S x2, D&C, bilat carpal tunnel, hemorrhoid surgery, rt hip partial replacement, colonoscopy Past Anesthesia/Blood Transfusion Reactions: Postoperative Nausea & Vomiting (PONV) Additional Past Anesthesia/Blood Transfusion Reaction / Comment(s): PONV w/ general anesthesia Past Psychological History: Anxiety Smoking Status: Never smoker Past Alcohol Use History: Daily, Heavy Additional Past Alcohol Use History / Comment(s): 2-3 BEERS DAILY Past Drug Use History: None Reported - Past Family History Mother Family Medical History: No Reported History Father Family Medical History: COPD Medications and Allergies Home Medications Medication Instructions Recorded Confirmed Type Citalopram Hydrobromide [CeleXA] 40 mg PO QAM 07/28/14 09/25/21 History Biotin [Biotin Disolve] 5,000 mcg PO DAILY 10/31/17 09/25/21 History Calcium Carbonate [Calcium] 600 mg PO BID 10/31/17 09/25/21 History Cholecalciferol (Vitamin D3) 1,000 unit PO BID 10/31/17 09/25/21 History [Vitamin D3] Cod Liver Oil 2 each PO DAILY 10/31/17 09/25/21 History Garlic 1 each PO DAILY 10/31/17 09/25/21 History Ibuprofen [Motrin] 800 mg PO TID PRN 10/31/17 09/25/21 History Multivitamins, Thera [Multivitamin 1 tab PO DAILY 10/31/17 09/25/21 History (formulary)] lisinopriL [Zestril] 20 mg PO BID 10/31/17 09/25/21 History Alendronate Sodium [Fosamax] 70 mg PO ROLLE 09/17/21 09/25/21 History Aspirin 81 mg PO BID 30 Days #60 tab 09/25/21 Rx Diclofenac Sodium [Voltaren] 75 mg PO BID 30 Days #60 tab 09/25/21 Rx Docusate [Colace] 100 mg PO BID #60 capsule 09/25/21 Rx Doxycycline Monohydrate 100 mg PO BID 42 Days #84 cap 09/25/21 Rx Omeprazole 40 mg PO DAILY 30 Days #30 cap 09/25/21 Rx Allergies Allergy/AdvReac Type Severity Reaction Status Date / Time No Known Allergies Allergy Verified 09/25/21 11:17 Physical Exam Vitals: Vital Signs Temp Pulse Pulse Resp BP Pulse Ox 09/26/21 08:00 95 14 73/45 97 09/26/21 02:19 97.7 F 92 16 93/58 97 09/25/21 21:00 89 97/63 96 09/25/21 20:45 88 94/62 95 09/25/21 20:30 85 90/59 95 09/25/21 20:15 90 94/60 94 L 09/25/21 20:00 85 90/59 95 09/25/21 19:45 72 94/62 98 09/25/21 19:30 90 91/57 92 L 09/25/21 19:15 89 92/61 95 09/25/21 19:00 85 91/60 96 09/25/21 17:51 80 16 102/58 100 09/25/21 17:36 83 16 100/59 100 09/25/21 17:21 80 16 109/65 100 09/25/21 17:06 87 16 110/69 100 09/25/21 16:51 98.1 F 96 16 116/69 100 Intake and Output 09/25/21 09/26/21 09/26/21 22:59 06:59 14:59 Intake Total 1150 Output Total 1075 450 400 Balance 75 -450 -400 Intake: IV 1150 Output: Drainage 400 Right Hip 400 Urine 175 450 Estimated Blood Loss 900 Other: Voiding Method Indwelling Catheter Indwelling Catheter Weight 78.2 kg - Constitutional General appearance: no acute distress - Respiratory Respiratory: bilateral: CTA - Cardiovascular Rhythm: regular Heart sounds: normal: S1, S2 Results 09/26/21 04:54 09/26/21 04:54 Cardiac Enzymes 09/26/21 09/26/21 Range/Units 04:54 04:54 AST 68 H (14-36) U/L Troponin I <0.012 (0.000-0.034) ng/mL CBC 09/26/21 Range/Units 04:54 WBC 13.43 H (4.50-10.00) X 10*3/uL RBC 3.23 L (4.10-5.20) X 10*6/uL Hgb 10.2 L (12.0-15.0) g/dL Hct 31.8 L (37.2-46.3) % Plt Count 169 (140-440) X 10*3/uL Comprehensive Metabolic Panel 09/26/21 Range/Units 04:54 Sodium 132 L (137-145) mmol/L Potassium 4.4 (3.5-5.1) mmol/L Chloride 108 H (98-107) mmol/L Carbon Dioxide 23 (22-30) mmol/L BUN 17 (7-17) mg/dL Creatinine 0.88 (0.52-1.04) mg/dL Glucose 114 H (74-99) mg/dL Calcium 7.7 L (8.4-10.2) mg/dL AST 68 H (14-36) U/L ALT 29 (4-34) U/L Alkaline Phosphatase 35 L (38-126) U/L Total Protein 4.8 L (6.3-8.2) g/dL Albumin 2.6 L (3.5-5.0) g/dL Current Medications Generic Name Dose Route Start Last Admin Trade Name Freq PRN Reason Stop Dose Admin Hydrocodone Bitart/Acetaminophen 1 each 09/25/21 17:01 Hydrocodone/Apap 5-325mg 1 Each Tab PO 10/25/21 17:02 Q6HR PRN Pain Scale 1 to 5 Hydrocodone Bitart/Acetaminophen 2 each 09/25/21 17:01 09/26/21 13:21 Hydrocodone/Apap 5-325mg 1 Each Tab PO 10/25/21 17:02 2 each Q6HR PRN Administration Pain Scale 6 to 10 Aspirin 81 mg 09/25/21 21:00 09/26/21 08:19 Aspirin 81 Mg PO 10/25/21 21:01 81 mg BID SAIRA Administration Doxycycline Monohydrate 100 mg 09/26/21 21:00 Doxycycline 100 Mg Cap PO 10/26/21 21:01 BID SAIRA Famotidine 20 mg 09/26/21 21:00 Famotidine 20 Mg/2 Ml Vial IV Q12HR SAIRA Hydrocortisone Sodium Succinate 100 mg 09/26/21 13:10 09/26/21 14:03 Hydrocortisone Succinate 100 Mg/2 Ml Vial IV 100 mg Q8HR SAIRA Administration Hydromorphone HCl 0.2 mg 09/25/21 17:01 Hydromorphone 0.2 Mg/1 Ml Syringe IVP 10/25/21 17:02 Q3HR PRN Pain Scale 1 to 3 Hydromorphone HCl 0.5 mg 09/25/21 17:01 Hydromorphone 0.5 Mg/0.5 Ml Syringe IVP 10/25/21 17:02 Q3HR PRN Pain Scale 4 to 6 Hydromorphone HCl 1 mg 09/25/21 17:01 Hydromorphone 1 Mg/Ml 1 Ml Syringe IVP 10/25/21 17:02 Q3HR PRN Pain Scale 7 to 10 Hydroxyzine Pamoate 25 mg 09/25/21 17:01 Hydroxyzine Pamoate 25 Mg Cap PO 10/25/21 17:02 Q4HR PRN Nausea, Anxiety, Pain Control Lactated Ringer's 1,000 mls @ 20 mls/hr 09/25/21 06:21 09/26/21 06:18 Lactated Ringers IV 10/25/21 06:22 Not Given .Q24H SAIRA Magnesium Sulfate/Dextrose 1 100 mls @ 100 mls/hr 09/26/21 13:30 09/26/21 14:07 gm/ IV Solution IVPB 09/26/21 16:29 100 mls/hr Q1H SAIRA Administration Sodium Chloride 1,000 mls @ 150 mls/hr 09/26/21 13:15 09/26/21 13:19 Saline 0.9% IV 150 mls/hr .Q6H40M SAIRA Administration Lidocaine HCl 0.1 ml 09/25/21 06:21 Lidocaine 1% (10mg/Ml) For Iv Start INTRADERMA 10/25/21 06:22 PER PROTOCOL PRN IV Start Miscellaneous Information 1 each 09/26/21 09:34 Magnesium Replacement Protocol 1 Each Misc MISCELLANE DAILY PRN Per Protocol Protocol Naloxone HCl 0.2 mg 09/25/21 17:01 Naloxone 0.4 Mg/Ml 1 Ml Vial IV 10/25/21 17:02 Q2M PRN Opioid Reversal Ondansetron HCl 4 mg 09/25/21 17:01 09/26/21 07:37 Ondansetron 4 Mg/2 Ml Vial IVP 10/25/21 17:02 4 mg DAILY PRN Administration Nausea And Vomiting Senna/Docusate Sodium 2 each 09/25/21 21:00 09/25/21 22:05 Sennosides-Docusate Sodium 1 Each Tab PO 10/25/21 21:01 2 each HS SAIRA Administration Intake and Output 09/25/21 09/26/21 09/26/21 22:59 06:59 14:59 Intake Total 1150 Output Total 1075 450 400 Balance 75 -450 -400 Intake: IV 1150 Output: Drainage 400 Right Hip 400 Urine 175 450 Estimated Blood Loss 900 Other: Voiding Method Indwelling Catheter Indwelling Catheter Weight 78.2 kg 09/26/21 04:54 09/26/21 04:54 Assessment and Plan Assessment: Assessment #1 status post hip surgery yesterday #2 hypertension of unknown etiology at this point Plan #1 continue IV fluid at this point #2 hold any blood pressure medications #3 rule out acute coronary event. Obtain serial cardiac enzymes #4 rule out pulmonary embolism as well #5 obtain an echocardiogram was Doppler to be done as soon as possible #6 obtain a cortisol level #7 transferred to intensive care unit #8 follow-up with the patient
[2021-09-26 15:19] LABS: Basophils % (A) 0 %; Eosinophils % (A) 0 %; HCT 31.4 % (34.0-46.0); Lymphocytes # (A) 1.3 k/uL (1.0-4.8); Lymphocytes % (A) 10 %; MCH 32.7 pg (25.0-35.0); MCHC 32.8 g/dL (31.0-37.0); MCV 99.5 fL (80.0-100.0); Monocytes # (A) 0.5 k/uL (0-1.0); Monocytes % (A) 4 %; Neutrophils # (A) 10.5 k/uL (1.3-7.7); Neutrophils % (A) 84 %; Platelet Count 161 k/uL (150-450); RBC 3.16 m/uL (3.80-5.40); RDW 13.3 % (11.5-15.5); WBC 12.6 k/uL (3.8-10.6)
[2021-09-26 15:21] LABS: HGB 10.3 gm/dL (11.4-16.0)
--- NOTE | 2021-09-26 15:21 | P.CNPUL ---
History of Present Illness Consult date: 09/26/21 Requesting physician: Giovanny Burciaga Reason for consult: other Chief complaint: Hypotension. History of present illness: Pulmonary consult dated 09/26/2021. This is a 66-year-old female that we are asked to see in consultation. The patient is postop day #1, status post right revision total hip arthroplasty and application of the negative pressure incisional wound VAC. The procedure was done by one of the orthopedic surgeons, for painful right hip hemiarthroplasty and aseptic loosening of the right hip hemiarthroplasty. Apparently, the surgery went well. Sometime early this morning, the patient developed hypotension. A rapid response team was called. The patient was given a couple liters of fluid. She got 1 L of lactated Ringer's, and 1 L normal saline. The hemoglobin is morning was 10.2. The patient apparently became lightheaded and dizzy. She wasn't feeling well. We are asked to see the patient to see whether or not the patient might be better served in the intensive care unit. We saw the patient and her room, her blood pressure was still only about 80 systolic. She was speaking in full sentences. She was lucid and oriented. She was not having any chest pain or chest discomfort. She did have a headache. Laboratory data from today includes a white count of 13.43, hemoglobin 10.2, hematocrit 31.8, and platelet count 169,000. Sodium was 132, potassium 4.4, chlorides 108, CO2 23, anion gap 1, BUN 17, and creatinine 0.88. The patient's AST was 68. Calcium was 7.7. The patient's cortisol level was only 7. Repeat was 14. The patient was not on corticosteroids preoperatively. She did not receive any injections of corticosteroids of any type prior to surgery. Testing for coronavirus was negative. The patient was seen by the primary service and hyd rocortisone was ordered. We decided to move the patient to the intensive care for further monitoring and management. I told the ICU nurse to start the patient on some additional fluids, use norepinephrine to get a systolic pressure above 100 or mean pressure right around 70 mmHg, and add midodrine 10 mg 3 times a day. Review of Systems REVIEW OF SYSTEMS: CONSTITUTIONAL: Lightheadedness and dizziness. NEUROLOGIC: Headache. HEENT: [ Negative.] CARDIAC: [Negative.] PULMONARY: [Negative.] GI: [Negative.] : [Negative.] RHEUMATOLOGIC: [ Negative.] IMMUNOLOGIC: [ Negative.] ENDOCRINE: [Negative. ] DERMATOLOGIC: [Negative.] Past Medical History Past Medical History: Hypertension, Musculoskeletal Disorder Additional Past Medical History / Comment(s): pain rt thigh History of Any Multi-Drug Resistant Organisms: None Reported Past Surgical History: Section, Joint Replacement Additional Past Surgical History / Comment(s): C-S x2, D&C, bilat carpal tunnel, hemorrhoid surgery, rt hip partial replacement, colonoscopy Past Anesthesia/Blood Transfusion Reactions: Postoperative Nausea & Vomiting (PONV) Additional Past Anesthesia/Blood Transfusion Reaction / Comment(s): PONV w/ general anesthesia Past Psychological History: Anxiety Smoking Status: Never smoker Past Alcohol Use History: Daily, Heavy Additional Past Alcohol Use History / Comment(s): 2-3 BEERS DAILY Past Drug Use History: None Reported - Past Family History Mother Family Medical History: No Reported History Father Family Medical History: COPD Medications and Allergies Home Medications Medication Instructions Recorded Confirmed Type Citalopram Hydrobromide [CeleXA] 40 mg PO QAM 07/28/14 09/25/21 History Biotin [Biotin Disolve] 5,000 mcg PO DAILY 10/31/17 09/25/21 History Calcium Carbonate [Calcium] 600 mg PO BID 10/31/17 09/25/21 History Cholecalciferol (Vitamin D3) 1,000 unit PO BID 10/31/17 09/25/21 History [Vitamin D3] Cod Liver Oil 2 each PO DAILY 10/31/17 09/25/21 History Garlic 1 each PO DAILY 10/31/17 09/25/21 History Ibuprofen [Motrin] 800 mg PO TID PRN 10/31/17 09/25/21 History Multivitamins, Thera [Multivitamin 1 tab PO DAILY 10/31/17 09/25/21 History (formulary)] lisinopriL [Zestril] 20 mg PO BID 10/31/17 09/25/21 History Alendronate Sodium [Fosamax] 70 mg PO ROLLE 09/17/21 09/25/21 History Aspirin 81 mg PO BID 30 Days #60 tab 09/25/21 Rx Diclofenac Sodium [Voltaren] 75 mg PO BID 30 Days #60 tab 09/25/21 Rx Docusate [Colace] 100 mg PO BID #60 capsule 09/25/21 Rx Doxycycline Monohydrate 100 mg PO BID 42 Days #84 cap 09/25/21 Rx Omeprazole 40 mg PO DAILY 30 Days #30 cap 09/25/21 Rx Allergies Allergy/AdvReac Type Severity Reaction Status Date / Time No Known Allergies Allergy Verified 09/25/21 11:17 Physical Exam Osteopathic Statement: *. No significant issues noted on an osteopathic structural exam other than those noted in the History and Physical/Consult. Vitals: Vital Signs Temp Pulse Pulse Resp BP Pulse Ox 09/26/21 08:00 95 14 73/45 97 09/26/21 02:19 97.7 F 92 16 93/58 97 09/25/21 21:00 89 97/63 96 09/25/21 20:45 88 94/62 95 09/25/21 20:30 85 90/59 95 09/25/21 20:15 90 94/60 94 L 09/25/21 20:00 85 90/59 95 09/25/21 19:45 72 94/62 98 09/25/21 19:30 90 91/57 92 L 09/25/21 19:15 89 92/61 95 09/25/21 19:00 85 91/60 96 09/25/21 17:51 80 16 102/58 100 09/25/21 17:36 83 16 100/59 100 09/25/21 17:21 80 16 109/65 100 09/25/21 17:06 87 16 110/69 100 09/25/21 16:51 98.1 F 96 16 116/69 100 Intake and Output 09/26/21 09/26/21 09/26/21 06:59 14:59 22:59 Output Total 450 900 Balance -450 -900 Output: Drainage 400 Right Hip 400 Urine 450 500 Other: Voiding Method Indwelling Catheter No acute distress, oriented 3. Currently on room air, with saturations of 97%. HEENT examination is grossly unremarkable. Neck supple. Full range of motion. No adenopathy thyromegaly or neck vein distention. Cardiovascular examination reveals regular rhythm rate. S1-S2 normal. No S3 or S4. No discernible murmur noted. Heart rate about 113 bpm. Lungs reveal clear breath sounds. Breath sounds are equal bilaterally. No adventitious lung sounds including wheezes rhonchi or crackles. Abdomen soft bowel sounds are heard. No masses or tenderness. Extremities are intact. No cyanosis clubbing or edema. Dressings over the right hip area. Skin is without rash or lesion. Neurologic examination is brief but nonfocal. Results - Laboratory Findings CBC and BMP: 09/26/21 04:54 09/26/21 04:54 Abnormal lab findings: Abnormal Labs 09/26/21 09/26/21 04:54 04:54 WBC 13.43 H RBC 3.23 L Hgb 10.2 L Hct 31.8 L MCV 98.5 H Immature Gran # 0.05 H Neutrophils # 11.34 H Monocytes # 1.05 H Eosinophils # 0 L Sodium 132 L Chloride 108 H Glucose 114 H Calcium 7.7 L Magnesium 1.4 L AST 68 H Alkaline Phosphatase 35 L Total Protein 4.8 L Albumin 2.6 L Assessment and Plan Assessment: Hypotension, which may relate to volume depletion and/or anemia. Postop day #1, status post right hip revision total hip arthroplasty. Rule out adrenal insufficiency. History of hypertension. History of osteoarthritis. Plan: Plan dated 09/26/2021. The patient will be transferred up into the intensive care unit. There, we'll be able to better monitor and manage her. Patient is currently on hydrocortisone. That seems reasonable given her low random cortisol level. The patient will get additional fluid, 1 L, and if need be, started on norepinephrine, to maintain a mean arterial pressure of about 70 mmHg. Currently, she is on room air. Saturations are excellent. I did ask for a repeat stat CBC. She is not anemic. She is not having any chest pain or chest discomfort. Time with Patient: Greater than 30
[2021-09-26] MEDS: NOREPINEPHRINE 4 MG in SODIUM CHLORIDE 0.9% 250 ML IV SCH (17:03)
--- NOTE | 2021-09-26 17:13 | US ---
EXAMINATION TYPE: US venous doppler duplex LE BI DATE OF EXAM: 09/26/2021 4:59 PM COMPARISON: NONE CLINICAL HISTORY: leg swelling. SIDE PERFORMED: Bilateral TECHNIQUE: The lower extremity deep venous system is examined utilizing real time linear array sonog sophia with graded compression, doppler sonography and color-flow sonography. VESSELS IMAGED: Common Femoral Vein Deep Femoral Vein Greater Saphenous Vein * Femoral Vein Popliteal Vein Small Saphenous Vein * Proximal Calf Veins (* superficial vessels) ICU patient done portably with extensive swelling. Technically difficult. Right Leg: Appears negative for DVT from groin to distal femoral vein. Unable to scan popliteal vein, patient had hip surgery yesterday and is unable to abduct, adduct or move leg in any direction to al low scanning. Left Leg: Negative for DVT IMPRESSION: No evidence of deep vein thrombosis in both legs.
[2021-09-26] MEDS: MIDODRINE 5 MG TAB PO SCH (17:45)
[2021-09-26 19:31] LABS: Calcium 7.5 mg/dL (8.4-10.2); Potassium 4.2 mmol/L (3.5-5.1)
[2021-09-26] MEDS: SENNOSIDES-DOCUSATE SODIUM 1 EACH TAB PO SCH (20:04)
[2021-09-26] MEDS: FAMOTIDINE 20 MG/2 ML VIAL IV SCH (20:04)
--- NOTE | 2021-09-26 21:29 | CT ---
EXAMINATION TYPE: CT angio chest DATE OF EXAM: 09/26/2021 COMPARISON: None HISTORY: Post op, high d-dimer, hypotension r/o PE. CT DLP: 253.1 mGycm Automated exposure control for dose reduction was used. CONTRAST: Performed with IV Contrast, patient injected with 100 mL of Isovue 370. There are 3-D post processed images. There are small bilateral pleural effusions. There is bilateral lower lobe atelectasis and interstiti al infiltrate. Heart size is normal. There is no pericardial effusion. There is normal contrast opacification of the pulmonary arteries. There are no filling defects. The thoracic vertebra have normal alignment. Posterior elements are intact. There is no compression f racture. The sternum is intact. There is some retained air in the esophagus. The thoracic aorta is intact. There is no aneurysm or dissection. IMPRESSION: No evidence of pulmonary embolism. Bilateral lower lobe interstitial infiltrates and atelectasis with mild pleural effusions. Esophageal air and minimal fluid could relate to esophageal dysfunction or reflux.
[2021-09-26] MEDS: DOXYCYCLINE 100 MG CAP PO SCH (22:15)
[2021-09-27] MEDS: HYDROcodone/APAP 5-325MG 1 EACH TAB PO PRN ×4 (02:53→21:28)
[2021-09-27] MEDS: SODIUM CHLORIDE 0.9% 1,000 ML IV SCH ×3 (04:26→15:55)
[2021-09-27] MEDS: NOREPINEPHRINE 4 MG in SODIUM CHLORIDE 0.9% 250 ML IV SCH (06:16)
[2021-09-27] MEDS: LACTATED RINGERS 1,000 ML IV SCH ×2 (06:16→22:34)
[2021-09-27] MEDS: MIDODRINE 5 MG TAB PO SCH ×3 (06:29→16:58)
--- NOTE | 2021-09-27 07:14 | P.PN ---
Subjective Progress Note Date: 09/27/21 Principal diagnosis: Hypotension The patient is a pleasant 66-year-old female patient with a past medical history significant for hypertension and lower extremities arthritis who was admitted to the hospital and underwent right hip surgery which was uneventful. We consulted to see the patient for further evaluation off hypotension. The patient was transferred to the intensive care unit for further monitoring. The patient was seen this morning in the ICU. She is feeling better. The blood pressure has improved after she received IV fluid and after she was started on myelogram. At the same time the symptoms of dizziness and lightheadedness have resolved. She is not experiencing any chest pain or chest discomfort. Acute coronary event was ruled out with 3 sets of cardiac enzymes. The EKG showed sinus rhythm without any significant ST or T-wave abnormalities. Pulmonary embolism was ruled out as well and she underwent a computed tomography scan of the chest which came in to be unremarkable. She is in process of having an echocardiogram. Blood work is unremarkable. The patient can be transferred back out of the ICU and will follow-up on her echocardiogram. Continue holding her blood pressure medication with lisinopril. Objective - Vital Signs Vital signs: Vital Signs Temp 98.6 F 09/27/21 04:00 Pulse 90 09/27/21 06:00 Resp 16 09/27/21 06:00 BP 116/67 09/27/21 06:00 Pulse Ox 95 09/27/21 06:00 Intake & Output 09/26/21 09/27/21 09/27/21 18:59 06:59 18:59 Intake Total 1399 1650 Output Total 1895 2935 Balance -496 -1285 Intake: IV 1399 1650 Magnesium Sulfate-D5w Pmx 100 1 gm In Dextrose/Water 1 100ml.bag @ 100 mls/hr IVPB Q1H SAIRA Rx#: [id number] Sodium Chloride 0.9% 1, 300 1650 000 ml @ 150 mls/hr IV . Q6H40M SAIRA Rx#:[id number] Sodium Chloride 0.9% 1, 999 000 ml @ 999 mls/hr IV . Q1H1M ONE Rx#:[id number] Output: Drainage 470 160 Right Hip 470 160 Urine 1425 2775 Other: Voiding Method Indwelling Catheter Indwelling Catheter - Constitutional General appearance: Present: no acute distress - Respiratory Respiratory: bilateral: CTA - Cardiovascular Rhythm: regular Heart sounds: normal: S1, S2 - Labs CBC & Chem 7: 09/26/21 14:28 09/26/21 18:50 Labs: Abnormal Lab Results - Last 24 Hours (Table) 09/26/21 09/26/21 09/26/21 Range/Units 04:54 04:54 04:54 WBC 13.43 H (4.50-10.00) X 10*3/uL RBC 3.23 L (4.10-5.20) X 10*6/uL Hgb 10.2 L (12.0-15.0) g/dL Hct 31.8 L (37.2-46.3) % MCV 98.5 H (80.0-97.0) fL Immature Gran # 0.05 H (0.00-0.04) X 10*3/uL Neutrophils # 11.34 H (1.80-7.70) X 10*3/uL Monocytes # 1.05 H (0.20-1.00) X 10*3/uL Eosinophils # 0 L (0.04-0.35) X 10*3/uL D-Dimer (<0.60) mg/L FEU Sodium 132 L (137-145) mmol/L Chloride 108 H (98-107) mmol/L Glucose 114 H (74-99) mg/dL Calcium 7.7 L (8.4-10.2) mg/dL Magnesium 1.4 L (1.6-2.3) mg/dL AST 68 H (14-36) U/L Alkaline Phosphatase 35 L (38-126) U/L Total Protein 4.8 L (6.3-8.2) g/dL Albumin 2.6 L (3.5-5.0) g/dL Vitamin D 25-Hydroxy 27.4 L (30.0-100.0) ng/mL 09/26/21 09/26/21 09/26/21 Range/Units 14:28 14:28 18:50 WBC 12.6 H (4.50-10.00) X 10*3/uL RBC 3.16 L (4.10-5.20) X 10*6/uL Hgb 10.3 L D (12.0-15.0) g/dL Hct 31.4 L (37.2-46.3) % MCV (80.0-97.0) fL Immature Gran # (0.00-0.04) X 10*3/uL Neutrophils # 10.5 H (1.80-7.70) X 10*3/uL Monocytes # (0.20-1.00) X 10*3/uL Eosinophils # (0.04-0.35) X 10*3/uL D-Dimer 1.62 H (<0.60) mg/L FEU Sodium 131 L (137-145) mmol/L Chloride (98-107) mmol/L Glucose 124 H (74-99) mg/dL Calcium 7.5 L (8.4-10.2) mg/dL Magnesium (1.6-2.3) mg/dL AST (14-36) U/L Alkaline Phosphatase (38-126) U/L Total Protein (6.3-8.2) g/dL Albumin (3.5-5.0) g/dL Vitamin D 25-Hydroxy (30.0-100.0) ng/mL Microbiology - Last 24 Hours (Table) 09/25/21 16:41 Gram Stain - Preliminary Leg - Right Tissue Culture - Preliminary 09/25/21 16:41 Gram Stain - Preliminary Hip - Right Tissue Culture - Preliminary Assessment and Plan Assessment: Assessment #1 status post hip surgery yesterday #2 hypertension of unknown etiology at this point, has improved Plan #1 acute coronary syndrome was ruled out #2 pulmonary embolism was ruled out #3 the pressure has improved after IV fluid and after she was started on midodrine #4 the patient can be transferred to the medical floor out of the ICU #5 follow-up on the echocardiogram
[2021-09-27 07:23] LABS: African American GFR (CKD) >90 (>60 ml/min/1.73 sqM); Anion Gap 0 mmol/L; Blood Urea Nitrogen 10 mg/dL (7-17); Calcium 7.8 mg/dL (8.4-10.2); Carbon Dioxide 21 mmol/L (22-30); Chloride 115 mmol/L (98-107); Glucose 115 mg/dL (74-99); Magnesium 2.3 mg/dL (1.6-2.3); Non-African American GFR(CKD) >90 (>60 ml/min/1.73 sqM); Potassium 4.2 mmol/L (3.5-5.1); Sodium 136 mmol/L (137-145)
[2021-09-27] MEDS: HYDROCORTISONE SUCCINATE 100 MG/2 ML VIAL IV SCH ×2 (08:25→16:58)
[2021-09-27] MEDS: FAMOTIDINE 20 MG/2 ML VIAL IV SCH (08:25)
[2021-09-27] MEDS: ASPIRIN 81 MG PO SCH ×2 (08:25→21:25)
[2021-09-27] MEDS: DOXYCYCLINE 100 MG CAP PO SCH ×2 (08:25→21:44)
--- NOTE | 2021-09-27 12:44 | P.PN ---
Progress Note - Text Progress Note Date: 09/27/21 Orthopedics: History of present illness: Patient is a very pleasant 66-year-old female who is seen and examined at the bedside for follow-up evaluation of her right hip. She is status post right revision total hip arthroplasty performed on 09/25/2021. She was experiencing significant hypotension yesterday and was transferred to the ICU. Since that time she has been seen by multiple medical providers including cardiology, pulmonology, and medicine. She has been seen by cardiology this morning who was able to rule out a cardiac event after 3 sets of cardiac enzymes. Patient's blood pressure has significantly improved since yesterday. She is very happy with her progress. She feels significantly better. She states she has been seen by multiple medical providers this morning. Nursing states patient is getting ready to transfer out of the ICU. She feels her right hip pain is significantly improved. She is continue to keep a wound VAC and drain in place. Nursing states the drain has only put out 60 mL over the past 12 hours. Matos catheter has been discontinued this morning. Patient is eating without difficulty. Physical Exam Total Hip Arthroplasty: Status post surgical day number 2 Patient is examined sitting bedside upright in a chair Patient is awake and alert, and oriented 3 Vital signs stable Good chest excursion with deep inspiration and expiration No signs or symptoms of DVT; no calf pain Dressing of the right hip is clean, dry, and intact; no erythema, purulence, or signs of infection Wound VAC in place over the surgical site Drain is intact; drain is removed during physical examination Full range of motion of ankles bilaterally Dorsiflexion, plantarflexion, and extensor hallucis longus positive sustained bilaterally Neurovascularly intact bilateral lower extremities Matos catheter has been discontinued Assessment: Status post right revision total hip arthroplasty performed on 09/25/2021 Right hip pain, improving Postoperative hypotension, significantly improved History of hypertension Plan: 1. Patient has had significant improvement of her right hip pain postoperatively. She was experiencing significant hypotension yesterday and was transferred to the ICU. This has significantly improved. She is planning to transfer out of the ICU today. Her wound VAC remains intact over the surgical site. A drain has also remained intact. The drain put out 60 mL of blood over the past shift. This drain has been discontinued by myself at the bedside today. We did discuss patient may toe touch weightbearing on the right lower extremity with the assistance of a walker. She is encouraged to work with physical therapy to increase her mobility and ambulation. She is planning to work with physical therapy tomorrow. If cleared by multiple other medical providers, and she continues to improve, we will plan to discharge her tomorrow, 09/28/2021. She may continue with aspirin 81 mg for DVT prophylaxis. Follow with Dr. Marmolejo or Tasha Love PA-C at [facility] following discharge. 2. Patient will continue to be seen and examined by multiple medical providers including medicine, pulmonology, and cardiology.
--- NOTE | 2021-09-27 12:57 | P.PN ---
Subjective Progress Note Date: 09/27/21 Principal diagnosis: Hypotension. Pulmonary consult dated 09/26/2021. This is a 66-year-old female that we are asked to see in consultation. The patient is postop day #1, status post right revision total hip arthroplasty and application of the negative pressure incisional wound VAC. The procedure was done by one of the orthopedic surgeons, for painful right hip hemiarthroplasty and aseptic loosening of the right hip hemiarthroplasty. Apparently, the surgery went well. Sometime early this morning, the patient developed hypotension. A rapid response team was called. The patient was given a couple liters of fluid. She got 1 L of lactated Ringer's, and 1 L normal saline. The hemoglobin is morning was 10.2. The patient apparently became lightheaded and dizzy. She wasn't feeling well. We are asked to see the patient to see whether or not the patient might be better served in the intensive care unit. We saw the patient and her room, her blood pressure was still only about 80 systolic. She was speaking in full sentences. She was lucid and oriented. She was not having any chest pain or chest discomfort. She did have a headache. Laboratory data from today includes a white count of 13.43, hemoglobin 10.2, hematocrit 31.8, and platelet count 169,000. Sodium was 132, potassium 4.4, chlorides 108, CO2 23, anion gap 1, BUN 17, and creatinine 0.88. The patient's AST was 68. Calcium was 7.7. The patient's cortisol level was only 7. Repeat was 14. The patient was not on corticosteroids preoperatively. She did not receive any injections of corticosteroids of any type prior to surgery. Testing for coronavirus was negative. The patient was seen by the primary service and hydrocortisone was ordered. We decided to move the patient to the intensive care for further monitoring and management. I told the ICU nurse to start the patient on some additional fluids, use norepinephrine to get a systolic pressure above 100 or mean pressure right around 70 mmHg, and add midodrine 10 mg 3 times a day. Progress note dated 09/27/2021. 66-year-old female seen yesterday in consultation. She is postop day #2, status post right revision total hip arthroplasty and application of a negative pressure incisional wound VAC. The patient developed postoperative hypotension. We are asked to see the patient on the general medical floor. We decided to m ove the patient to the intensive care unit for further monitoring and management. The patient was given midodrine, and norepinephrine. Today, she is on room air. She's getting saline at 150 mL an hour. She had Doppler studies of her legs, which were negative. She had a CT angiogram which was also negative for pulmonary embolism. Her sodium is 136, potassium 4.2, chlorides 115, CO2 21, nightly 10, and creatinine 0.66. Her pro-calcitonin level was 0.15. Cortisol level was 7 and repeat was 14. In my opinion, the patient could be transferred out to the general medical floor. She is doing much better. She feels much improved today. Objective - Vital Signs Vital signs: Vital Signs Temp 98.6 F 09/27/21 04:00 Pulse 86 09/27/21 10:00 Resp 18 09/27/21 07:00 BP 112/60 09/27/21 11:00 Pulse Ox 95 09/27/21 10:00 Intake & Output 09/26/21 09/27/21 09/27/21 18:59 06:59 18:59 Intake Total 1399 1650 500 Output Total 1895 2935 600 Balance -496 -1285 -100 Intake: IV 1399 1650 500 Magnesium Sulfate-D5w Pmx 100 1 gm In Dextrose/Water 1 100ml.bag @ 100 mls/hr IVPB Q1H [facility] Rx#: [id number] Sodium Chloride 0.9% 1, 300 1650 500 000 ml @ 50 mls/hr IV . Q20H [facility] Rx#:[id number] Sodium Chloride 0.9% 1, 999 000 ml @ 999 mls/hr IV . Q1H1M [facility] Rx#:[id number] Output: Drainage 470 160 Right Hip 470 160 Urine 1425 2775 600 Other: Voiding Method Indwelling Catheter Indwelling Catheter Indwelling Catheter - Exam No acute distress, oriented 3. Currently on room air. Saturations 95%. HEENT examination is grossly unremarkable. Neck supple. Full range of motion. No adenopathy thyromegaly or neck vein distention. Cardiovascular examination reveals regular rhythm rate. S1-S2 normal. No S3 or S4. No discernible murmur noted. Heart rate 86 beats a minute. Blood pressure 123/65 with a mean of 84. Lungs reveal clear breath sounds. Breath sounds are equal bilaterally. No adventitious lung sounds including wheezes rhonchi or crackles. Abdomen soft bowel sounds are heard. No masses or tenderness. Extremities are intact. No cyanosis clubbing or edema. Skin is without rash or lesion. Neurologic examination is brief but nonfocal. - Labs CBC & Chem 7: 09/26/21 14:28 09/27/21 06:31 Labs: Abnormal Lab Results - Last 24 Hours (Table) 09/26/21 09/26/21 09/26/21 Range/Units 04:54 14:28 14:28 WBC 12.6 H (3.8-10.6) k/uL RBC 3.16 L (3.80-5.40) m/uL Hgb 10.3 L D (11.4-16.0) gm/dL Hct 31.4 L (34.0-46.0) % Neutrophils # 10.5 H (1.3-7.7) k/uL D-Dimer 1.62 H (<0.60) mg/L FEU Sodium (137-145) mmol/L Chloride (98-107) mmol/L Carbon Dioxide (22-30) mmol/L Glucose (74-99) mg/dL Calcium (8.4-10.2) mg/dL Vitamin D 25-Hydroxy 27.4 L (30.0-100.0) ng/mL Procalcitonin (0.02-0.09) ng/mL 09/26/21 09/27/21 09/27/21 Range/Units 18:50 06:31 06:31 WBC (3.8-10.6) k/uL RBC (3.80-5.40) m/uL Hgb (11.4-16.0) gm/dL Hct (34.0-46.0) % Neutrophils # (1.3-7.7) k/uL D-Dimer (<0.60) mg/L FEU Sodium 131 L 136 L (137-145) mmol/L Chloride 115 H (98-107) mmol/L Carbon Dioxide 21 L (22-30) mmol/L Glucose 124 H 115 H (74-99) mg/dL Calcium 7.5 L 7.8 L (8.4-10.2) mg/dL Vitamin D 25-Hydroxy (30.0-100.0) ng/mL Procalcitonin 0.15 H (0.02-0.09) ng/mL Microbiology - Last 24 Hours (Table) 09/25/21 16:41 Gram Stain - Preliminary Leg - Right Tissue Culture - Preliminary 09/25/21 16:41 Gram Stain - Preliminary Hip - Right Tissue Culture - Preliminary Assessment and Plan Assessment: Hypotension, which may relate to volume depletion and/or anemia. Postop day #2, status post right hip revision total hip arthroplasty. No evidence of PE on CT angiogram or DVT on Doppler. Rule out adrenal insufficiency. History of hypertension. History of osteoarthritis. Plan: Plan dated 09/26/2021. The patient will be transferred up into the intensive care unit. There, we'll be able to better monitor and manage her. Patient is currently on hydrocortisone. That seems reasonable given her low random cortisol level. The patient will get additional fluid, 1 L, and if need be, started on norepinephrine, to maintain a mean arterial pressure of about 70 mmHg. Currently, she is on room air. Saturations are excellent. I did ask for a repeat stat CBC. She is not anemic. She is not having any chest pain or chest discomfort. Plan dated 09/27/2021. The patient's doing much better. Her blood pressure is very stable. The patient was given midodrine, 10 mg, 3 times a day. In addition, the primary service started her on hydrocortisone 100 mg every 8 hours. Additional recommendations and suggestions are forthcoming. We'll continue to follow and make recommendations where appropriate. Her respiratory status is stable. No additional recommendations are made. Prognosis is thought to be generally good. Her repeat hemoglobin was 10.3. Time with Patient: Less than 30
--- NOTE | 2021-09-27 13:57 | ECHOF ---
Referral Reason:low BP MEASUREMENTS -------- HEIGHT: 165.1 cm WEIGHT: 78.0 kg BP: 73/45 RVIDd: 3.4 cm (< 3.3) IVSd: 1.4 cm (0.6 - 1.1) LVIDd: 3.6 cm (3.9 - 5.3) LVPWd: 1.2 cm (0.6 - 1.1) IVSs: 1.5 cm LVIDs: 2.3 cm LVPWs: 1.5 cm LAESV Index (A-L): 17.91 ml/m Ao Diam: 3.0 cm (2.0 - 3.7) MV E Raj: 1.12 m/s MV DecT: 155 ms MV A Raj: 1.14 m/s MV E/A Ratio: 0.99 FINDINGS -------- Sinus rhythm. This was a technically difficult study with suboptimal views. Pt unable to turn due to hip fx. The left ventricular size is normal. There is mild concentric left ventricular hypertrophy. Overa ll left ventricular systolic function is normal with, an EF between 55 - 60 %. The right ventricle is mildly enlarged. Normal LA size by volume 22+/-6 ml/m2. The right atrium was not well visualized. 5.0mg of Lumason was utilized for enhancement of images Interatrial and interventricular septum intact. The aortic valve is trileaflet and appears structurally normal. There is no evidence of aortic regu rgitation. There is no evidence of aortic stenosis. No mitral regurgitation. Mild tricuspid regurgitation present. There is no evidence of pulmonary hypertension. The right v entricular systolic pressure, as measured by Doppler, is {RVSP}. There is no pulmonic regurgitation present. The aortic root size is normal. IVC Not well visulized. There is no pericardial effusion. CONCLUSIONS -------- 1. The left ventricular size is normal. 2. There is mild concentric left ventricular hypertrophy. 3. Overall left ventricular systolic function is normal with, an EF between 55 - 60 %. 4. The right ventricle is mildly enlarged. [employer] MANAGER: Lizbeth Cano [facility]
[2021-09-27] MEDS: FAMOTIDINE 20 MG TAB PO SCH (21:26)
[2021-09-27] MEDS: SENNOSIDES-DOCUSATE SODIUM 1 EACH TAB PO SCH (21:26)
--- NOTE | 2021-09-27 21:27 | P.PN ---
Subjective This is a pleasant 66 years old female with past medical history of hypertension, osteoarthritis of the joints, status post right hip replacement, a nd she drinks about 3 beers daily but she denies smoking. She was admitted yesterday for her right hip prosthesis replacement after her initial surgery about 5-6 years ago she continued to have pain in her right with evidence of a septic loosening of the right hip hemiarthroplasty. She had her surgery yesterday and today's postop day #1 for her right revision of the total hip arthroplasty She tolerated the procedure well, this morning she was trying to get up to get her foot and breakfast when she felt dizzy and lightheaded and she had to lie down, her blood pressure was low 91/57. She received 2 L of normal saline Repeat blood pressure is 85/40s. Patient still feeling lightheaded after 2 L of normal saline. Change her Ringer lactate to normal saline at 1 50 mL/h. Patient other than that she denies any chest pain or dyspnea. No abdominal pain. No vomiting. She has one episode of vomiting this morning. No weakness or numbness or blurred vision. Patient states that she has history of hypertension and at certain times she feels lightheadedness, she takes losartan 40 mg daily, she checked her blood pressure with her PCP prior to the surgery and was 110 for systolic BP. Her blood pressure still on the low side therefore we are going to consult cardiology team. Repeat troponin, lactic acid, cortisone/ACTH, we will check a d-dimer as well. Discussed with Dr. Anthony currently we'll come and see the patient as well 09/27/2021 Patient seen this morning in the ICU, she was sitting in chair fully awake and oriented, completely asymptomatic she was feeling happy how she is feeling and all her symptoms resolved. Her blood pressure improved to 123/6500 195. No chest pain or dyspnea. No headache or dizziness or other symptoms. Sodium improved to 136. CT of the chest was negative for pulmonary embolism and showing bilateral atelectasis and mild pleural effusion. Doppler of the leg is negative for DVT. Proctoscopy gallstone is slightly elevated 0.15 Ejection fraction 55-60%. She was still in normal saline at 150 mL per hour. Pressors were off this morning She still on midodrine 10 mg tid, and hydrocortisone 100 mg 3 times a day. We'll try to switch her to Cortef tomorrow Objective - Vital Signs Vital signs: Vital Signs Temp 98.6 F 09/27/21 04:00 Pulse 99 09/27/21 07:00 Resp 18 09/27/21 07:00 BP 107/56 09/27/21 07:00 Pulse Ox 97 09/27/21 07:00 Intake & Output 09/26/21 09/27/21 09/27/21 18:59 06:59 18:59 Intake Total 1399 1650 Output Total 1895 2935 Balance -496 -1285 Intake: IV 1399 1650 Magnesium Sulfate-D5w Pmx 100 1 gm In Dextrose/Water 1 100ml.bag @ 100 mls/hr IVPB Q1H [facility] Rx#: [id number] Sodium Chloride 0.9% 1, 300 1650 000 ml @ 150 mls/hr IV . Q6H40M [facility] Rx#:[id number] Sodium Chloride 0.9% 1, 999 000 ml @ 999 mls/hr IV . Q1H1M [facility] Rx#:[id number] Output: Drainage 470 160 Right Hip 470 160 Urine 1425 2775 Other: Voiding Method Indwelling Catheter Indwelling Catheter - Exam GENERAL: The patient is alert and oriented x3, not in any acute distress. Well developed, well nourished. HEENT: Pupils are round and equally reacting to light. EOMI. No scleral icterus. No conjunctival pallor. Normocephalic, atraumatic. No pharyngeal erythema. No thyromegaly. CARDIOVASCULAR: S1 and S2 present. No murmurs, rubs, or gallops. PULMONARY: Chest is clear to auscultation, no wheezing or crackles. ABDOMEN: Soft, nontender, nondistended, normoactive bowel sounds. No palpable organomegaly. MUSCULOSKELETAL: No joint swelling or deformity. EXTREMITIES: No cyanosis, clubbing, or pedal edema. NEUROLOGICAL: Gross neurological examination did not reveal any focal deficits. SKIN: No rashes. no petechiae. - Labs CBC & Chem 7: 09/26/21 14:28 09/27/21 06:31 Labs: Abnormal Lab Results - Last 24 Hours (Table) 09/26/21 09/26/21 09/26/21 Range/Units 04:54 14:28 14:28 WBC 12.6 H (3.8-10.6) k/uL RBC 3.16 L (3.80-5.40) m/uL Hgb 10.3 L D (11.4-16.0) gm/dL Hct 31.4 L (34.0-46.0) % Neutrophils # 10.5 H (1.3-7.7) k/uL D-Dimer 1.62 H (<0.60) mg/L FEU Sodium (137-145) mmol/L Chloride (98-107) mmol/L Carbon Dioxide (22-30) mmol/L Glucose (74-99) mg/dL Calcium (8.4-10.2) mg/dL Vitamin D 25-Hydroxy 27.4 L (30.0-100.0) ng/mL Procalcitonin (0.02-0.09) ng/mL 09/26/21 09/27/21 09/27/21 Range/Units 18:50 06:31 06:31 WBC (3.8-10.6) k/uL RBC (3.80-5.40) m/uL Hgb (11.4-16.0) gm/dL Hct (34.0-46.0) % Neutrophils # (1.3-7.7) k/uL D-Dimer (<0.60) mg/L FEU Sodium 131 L 136 L (137-145) mmol/L Chloride 115 H (98-107) mmol/L Carbon Dioxide 21 L (22-30) mmol/L Glucose 124 H 115 H (74-99) mg/dL Calcium 7.5 L 7.8 L (8.4-10.2) mg/dL Vitamin D 25-Hydroxy (30.0-100.0) ng/mL Procalcitonin 0.15 H (0.02-0.09) ng/mL Microbiology - Last 24 Hours (Table) 09/25/21 16:41 Gram Stain - Preliminary Leg - Right Tissue Culture - Preliminary 09/25/21 16:41 Gram Stain - Preliminary Hip - Right Tissue Culture - Preliminary Assessment and Plan Assessment: History of osteoarthritis status post painful aseptic loosening of the right hip hemiarthroplasty. Admitted for revision of the right total hip arthroplasty. Postop hypotension History of hypertension Possible alcohol abuse Plan: This is a pleasant 66 years old female with right hip surgery and postop hypertension Keep monitoring blood pressure Change IV hydrocortisone into Cortef test tomorrow Discontinue IV fluids tonight. Cardiology and pulmonary team on the case as well. Primary orthopedic team following the case Labs and medication were reviewed.. Continue same treatment. Continue with symptomatic treatment. Resume home medication. Monitor lytes and vitals. DVT prophylaxis deferred to orthopedic team . Further recommendations depends on the clinical course of the patient DVT prophylaxis: On aspirin twice a day per orthopedic team GI Prophylaxis: Pepcid PT/OT: Pending Prognosis is guarded
[2021-09-28] MEDS ORDERED: HYDROCORTISONE SUCCINATE 100 MG/2 ML VIAL IV SCH
[2021-09-28] MEDS: HYDROcodone/APAP 5-325MG 1 EACH TAB PO PRN ×3 (08:26→21:16)
[2021-09-28] MEDS: ASPIRIN 81 MG PO SCH ×2 (08:27→21:17)
[2021-09-28] MEDS: FAMOTIDINE 20 MG TAB PO SCH ×2 (08:27→21:17)
[2021-09-28] MEDS: DOXYCYCLINE 100 MG CAP PO SCH ×2 (08:28→21:17)
[2021-09-28] MEDS: MIDODRINE 5 MG TAB PO SCH (08:28)
[2021-09-28] MEDS: CALCIUM CARB-VIT D 500 MG-5 MCG TAB PO SCH ×2 (08:28→16:30)
[2021-09-28] MEDS: HYDROCORTISONE 10 MG TAB PO SCH ×2 (08:30→08:33)
[2021-09-28 09:00] LABS: Basophils # (A) 0.02 X 10*3/uL (0.00-0.10); Basophils % (A) 0.2 %; Eosinophils # (A) 0.01 X 10*3/uL (0.04-0.35); Eosinophils % (A) 0.1 %; HCT 25.6 % (37.2-46.3); HGB 8.2 g/dL (12.0-15.0); Immature Grans, Automated 0.3 %; Lymphocytes # (A) 1.89 X 10*3/uL (0.90-5.00); Lymphocytes % (A) 17.3 %; MCH 31.4 pg (27.0-32.0); MCV 98.1 fL (80.0-97.0); Mean Platelet Volume 11.6 fL (9.5-12.2); Monocytes # (A) 0.99 X 10*3/uL (0.20-1.00); Monocytes % (A) 9.1 %; NRBC Per 100 WBC 0 /100 WBCS (0.0-0.0); Neutrophils # (A) 7.97 X 10*3/uL (1.80-7.70); Platelet Count 124 X 10*3/uL (140-440); RBC 2.61 X 10*6/uL (4.10-5.20); RDW 13.9 % (11.5-14.5); WBC 10.91 X 10*3/uL (4.50-10.00)
[2021-09-28 09:14] LABS: African American GFR (CKD) 118.5 (60.0-200.0); Anion Gap 7.2 mmol/L (10.00-18.00); Carbon Dioxide 22.8 mmol/L (20.0-27.5); Non-African American GFR(CKD) 102.3 (60.0-200.0); Potassium 3.8 mmol/L (3.5-5.5)
--- NOTE | 2021-09-28 11:30 | P.PN ---
Subjective The patient is a pleasant 66-year-old female patient with a past medical history significant for hypertension and lower extremities arthritis who was admitted to the hospital and underwent right hip surgery which was uneventful. She does not follow with a emergency vehicle technician. We consulted to see the patient for further evaluation off hypotension. The patient was transferred to the intensive care unit for further monitoring. She was transferred out of the ICU on 09/27/21. The patient was seen this morning at bedside, she is feeling much better. She has no complaints. Her blood pressure has improved after she received IV fluid and after she was started on midodrine. At the same time the symptoms of dizziness and lightheadedness have resolved. She is not experiencing any chest pain or chest discomfort. Acute coronary event was ruled out with 3 sets of cardiac enzymes. The EKG showed sinus rhythm without any significant ST or T- wave abnormalities. Pulmonary embolism was ruled out as well and she underwent a computed tomography scan of the chest which came in to be unremarkable. Her echocardiogram revealed EF 5560 percent, no significant wall motion abnormalities. GENERAL: Well-appearing, well-nourished and in no acute distress. NECK: Supple without JVD or thyromegaly. LUNGS: Breath sounds clear to auscultation bilaterally. Respiration equal and unlabored. No wheezes, rales or rhonchi. HEART: Regular rate and rhythm without murmurs, rubs or gallops. S1 and S2 heard. EXTREMITIES: Normal range of motion, no edema. No clubbing or cyanosis. Peripheral pulses intact. ASSESSMENT Hypotension, has improved History of hypertension History of osteoarthritis status post prior right hip hemiarthroplasty. Status post revision of the right total hip arthroplasty on 09/25/21 PLAN From a cardiology perspective, patient is stable to discharged home. Echocardiogram revealed normal LV systolic function. Continue hold lisinopril at this time, patient monitor BP at home and follow up outpatient. Nurse Practitioner note has been reviewed, I agree with a documented findings and plan of care. Patient was seen and examined. Objective - Vital Signs Vital signs: Vital Signs Temp 98.3 F 09/28/21 01:42 Pulse 96 09/28/21 01:42 Resp 14 09/28/21 01:42 BP 120/65 09/28/21 01:42 Pulse Ox 97 09/28/21 01:42 Intake & Output 09/27/21 09/28/21 09/28/21 18:59 06:59 18:59 Intake Total 736 222 Output Total 600 Balance 136 222 Intake: IV 500 Sodium Chloride 0.9% 1, 500 000 ml @ 50 mls/hr IV . Q20H [facility] Rx#:[id number] Oral 236 222 Output: Urine 600 Other: Voiding Method Toilet Toilet Indwelling Catheter Indwelling Catheter # Voids 2 1 - Labs CBC & Chem 7: 09/28/21 02:58 09/28/21 02:58 Labs: Abnormal Lab Results - Last 24 Hours (Table) 09/27/21 09/28/21 09/28/21 Range/Units 06:31 02:58 02:58 WBC 10.91 H (4.50-10.00) X 10*3/uL RBC 2.61 L (4.10-5.20) X 10*6/uL Hgb 8.2 L (12.0-15.0) g/dL Hct 25.6 L (37.2-46.3) % MCV 98.1 H (80.0-97.0) fL Plt Count 124 L (140-440) X 10*3/uL Neutrophils # 7.97 H (1.80-7.70) X 10*3/uL Eosinophils # 0.01 L (0.04-0.35) X 10*3/uL Chloride 112 H (96-109) mmol/L Anion Gap 7.20 L (10.00-18.00) mmol/L BUN 8.0 L (9.0-27.0) mg/dL Creatinine 0.5 L (0.6-1.5) mg/dL Calcium 8.0 L (8.7-10.3) mg/dL Procalcitonin 0.15 H (0.02-0.09) ng/mL Microbiology - Last 24 Hours (Table) 09/25/21 16:41 Anaerobic Culture - Preliminary Hip - Right 09/25/21 16:41 Anaerobic Culture - Preliminary Leg - Right 09/25/21 16:41 Gram Stain - Preliminary Leg - Right Tissue Culture - Preliminary 09/25/21 16:41 Gram Stain - Preliminary Hip - Right Tissue Culture - Preliminary
--- NOTE | 2021-09-28 12:14 | P.PN ---
Subjective Progress Note Date: 09/28/21 This patient is a 66-year-old female who is status-post right revision total hip arthroplasty on 09/25/21. Today is post-operative day #3. Patient has been transferred from the ICU for post-operative hypotension to [address] [place] [address] yesterday. Acute coronary event was ruled out, pulmonary embolism was ruled out. Patient is examined bedside today. She is up to the bedside chair. Patient states she is feeling great with no complaints today. She is having no pain in the right hip. Patient is tolerating her diet well. Patient's blood pressure has normalized and most recent reading is 132/67. Hemovac drain was removed yesterday. Patient denies chest pain, shortness of breath. Objective - Vital Signs Vital signs: Vital Signs Temp 97.9 F 09/28/21 08:00 Pulse 113 H 09/28/21 08:00 Resp 14 09/28/21 08:00 BP 132/67 09/28/21 08:00 Pulse Ox 97 09/28/21 08:00 Intake & Output 09/27/21 09/28/21 09/28/21 18:59 06:59 18:59 Intake Total 736 222 Output Total 600 Balance 136 222 Intake: IV 500 Sodium Chloride 0.9% 1, 500 000 ml @ 50 mls/hr IV . Q20H [facility] Rx#:[id number] Oral 236 222 Output: Urine 600 Other: Voiding Method Toilet Toilet Indwelling Catheter Indwelling Catheter # Voids 2 1 1 - Exam On examination, the patient is sitting up in no apparent distress. She is alert and oriented 3. She is sitting up in the bedside. On inspection of the right hip, there is a wound VAC in place that has a good seal at this time. Hemovac drain has been removed. The thigh is soft and compressible. Patient is good strength and range of motion of the right ankle. Motor and sensory function is intact of the right lower extremity. Dorsalis pedis pulse is easily palpable. Right lower extremity is warm and well-perfused. Calf is soft nontender to palpation. - Labs CBC & Chem 7: 09/28/21 02:58 09/28/21 02:58 Labs: Abnormal Lab Results - Last 24 Hours (Table) 09/28/21 09/28/21 Range/Units 02:58 02:58 WBC 10.91 H (4.50-10.00) X 10*3/uL RBC 2.61 L (4.10-5.20) X 10*6/uL Hgb 8.2 L (12.0-15.0) g/dL Hct 25.6 L (37.2-46.3) % MCV 98.1 H (80.0-97.0) fL Plt Count 124 L (140-440) X 10*3/uL Neutrophils # 7.97 H (1.80-7.70) X 10*3/uL Eosinophils # 0.01 L (0.04-0.35) X 10*3/uL Chloride 112 H (96-109) mmol/L Anion Gap 7.20 L (10.00-18.00) mmol/L BUN 8.0 L (9.0-27.0) mg/dL Creatinine 0.5 L (0.6-1.5) mg/dL Calcium 8.0 L (8.7-10.3) mg/dL Microbiology - Last 24 Hours (Table) 09/25/21 16:41 Anaerobic Culture - Preliminary Hip - Right 09/25/21 16:41 Anaerobic Culture - Preliminary Leg - Right 09/25/21 16:41 Gram Stain - Preliminary Leg - Right Tissue Culture - Preliminary 09/25/21 16:41 Gram Stain - Preliminary Hip - Right Tissue Culture - Preliminary Assessment and Plan Assessment: Status-post right revision total hip arthroplasty on 09/25/21. Post-operative day #3. Plan: - Patient may toe-touch weight-bear on the right lower extremity with a walker. - Physical therapy for gait and balance training. - Keep wound VAC in place. - Pain management as needed. - Appreciate medial management per internal medicine, cardiology, pulmonology. - Aspirin 81 mg twice a day for DVT prophylaxis. - Continue doxycycline 100 mg twice a day for 6 weeks for wound healing prophylaxis. - Case management is consulted for discharge planning. Anticipate discharge home tomorrow, pending medical clearance.
--- NOTE | 2021-09-28 15:08 | P.PN ---
Subjective Progress Note Date: 09/28/21 Principal diagnosis: Hypotension, in the postoperative period, status post right hip revision total hip arthroplasty This is a 66-year-old female that we are asked to see in consultation. The patient is postop day #1, status post right revision total hip arthroplasty and application of the negative pressure incisional wound VAC. The procedure was done by one of the orthopedic surgeons, for painful right hip hemiarthroplasty and aseptic loosening of the right hip hemiarthroplasty. Apparently, the surgery went well. Sometime early this morning, the patient developed hypot ension. A rapid response team was called. The patient was given a couple liters of fluid. She got 1 L of lactated Ringer's, and 1 L normal saline. The hemoglobin is morning was 10.2. The patient apparently became lightheaded and dizzy. She wasn't feeling well. We are asked to see the patient to see whether or not the patient might be better served in the intensive care unit. We saw the patient and her room, her blood pressure was still only about 80 systolic. She was speaking in full sentences. She was lucid and oriented. She was not having any chest pain or chest discomfort. She did have a headache. Laboratory data from today includes a white count of 13.43, hemoglobin 10.2, hematocrit 31.8, and platelet count 169,000. Sodium was 132, potassium 4.4, chlorides 108, CO2 23, anion gap 1, BUN 17, and creatinine 0.88. The patient's AST was 68. Calcium was 7.7. The patient's cortisol level was only 7. Repeat was 14. The patient was not on corticosteroids preoperatively. She did not receive any injections of corticosteroids of any type prior to surgery. Testing for cor onavirus was negative. The patient was seen by the primary service and hydrocortisone was ordered. We decided to move the patient to the intensive care for further monitoring and management. I told the ICU nurse to start the patient on some additional fluids, use norepinephrine to get a systolic pressure above 100 or mean pressure right around 70 mmHg, and add midodrine 10 mg 3 times a day. Progress note dated 09/27/2021. 66-year-old female seen yesterday in consultation. She is postop day #2, status post right revision total hip arthroplasty and application of a negative pressure incisional wound VAC. The patient developed postoperative hypotension. We are asked to see the patient on the general medical floor. We decided to move the patient to the intensive care unit for further monitoring and management. The patient was given midodrine, and norepinephrine. Today, she is on room air. She's getting saline at 150 mL an hour. She had Doppler studies of her legs, which were negative. She had a CT angiogram which was also negative for pulmonary embolism. Her sodium is 136, potassium 4.2, chlorides 115, CO2 21, nightly 10, and creatinine 0.66. Her pro-calcitonin level was 0.15. Cortisol level was 7 and repeat was 14. In my opinion, the patient could be transferred out to the general medical floor. She is doing much better. She feels much improved today. On 09/28/2021 patient seen in follow-up with a surgical floor, she is sitting up in the recliner, breathing comfortably, she is on room air, vital signs have been stable, blood pressure has improved currently at 120/65 with a mean of 83, no fever or chills, room air pulse ox is 97%. Patient denies any pulmonary complaints, her d-dimer was elevated and CTA chest has been completed showing no evidence of pulmonary embolism, a digital bilateral lower lobe interstitial cultures atelectasis with mild pleural effusions. Venous Doppler studies were negative for evidence of DVT in both legs. His labs have been reviewed with blood cell count is improving down to 10.9, hemoglobin is 8.2, platelet count is 124, sodium is 142, potassium is 3.8, chloride is 112, BUN is 8, creatinine 0.5. Pro-costal level is negative at 0.15. Serum cortisol level was only 7 on 09/26/2021, patient was started on IV hydrocortisone which has been converted to oral Cortef today at 10 mg 3 times daily. ACTH was 5.30. Troponin was negative at less than 0.012. Lactic acid was 1.7 Objective - Vital Signs Vital signs: Vital Signs Temp 97.9 F 09/28/21 08:00 Pulse 113 H 09/28/21 08:00 Resp 14 09/28/21 08:00 BP 132/67 09/28/21 08:00 Pulse Ox 97 09/28/21 08:00 Intake & Output 01/30/22 01/31/22 01/31/22 18:59 06:59 18:59 Intake Total 736 222 Output Total 600 Balance 136 222 Intake: IV 500 Sodium Chloride 0.9% 1, 500 000 ml @ 50 mls/hr IV . Q20H [facility] Rx#:[id number] Oral 236 222 Output: Urine 600 Other: Voiding Method Toilet Toilet Indwelling Catheter Indwelling Catheter # Voids 2 1 1 - Exam GENERAL EXAM: Alert, very pleasant, 66-year-old white female, on room air with pulse ox of 97%, comfortable in no apparent distress. HEAD: Normocephalic/atraumatic. EYES: Normal reaction of pupils, equal size. Conjunctiva pink, sclera white. NOSE: Clear with pink turbinates. THROAT: No erythema or exudates. NECK: No masses, no JVD, no thyroid enlargement, no adenopathy. CHEST: No chest wall deformity. Symmetrical expansion. LUNGS: Equal air entry with no crackles, wheeze, rhonchi or dullness. CVS: Regular rate and rhythm, normal S1 and S2, no gallops, no murmurs, no rubs ABDOMEN: Soft, nontender. No hepatosplenomegaly, normal bowel sounds, no guarding or rigidity. EXTREMITIES: No clubbing, no edema, no cyanosis, 2+ pulses and upper and lower extremities. MUSCULOSKELETAL: Muscle strength and tone normal. SPINE: No scoliosis or deformity SKIN: No rashes. Right hip incision is covered with a surgical dressing, clean dry and intact. Hemovac was removed yesterday CENTRAL NERVOUS SYSTEM: Alert and oriented -3. No focal deficits, tone is normal in all 4 extremities. PSYCHIATRIC: Alert and oriented -3. Appropriate affect. Intact judgment and insight. - Labs CBC & Chem 7: 09/28/21 02:58 09/28/21 02:58 Labs: Abnormal Lab Results - Last 24 Hours (Table) 09/28/21 09/28/21 Range/Units 02:58 02:58 WBC 10.91 H (4.50-10.00) X 10*3/uL RBC 2.61 L (4.10-5.20) X 10*6/uL Hgb 8.2 L (12.0-15.0) g/dL Hct 25.6 L (37.2-46.3) % MCV 98.1 H (80.0-97.0) fL Plt Count 124 L (140-440) X 10*3/uL Neutrophils # 7.97 H (1.80-7.70) X 10*3/uL Eosinophils # 0.01 L (0.04-0.35) X 10*3/uL Chloride 112 H (96-109) mmol/L Anion Gap 7.20 L (10.00-18.00) mmol/L BUN 8.0 L (9.0-27.0) mg/dL Creatinine 0.5 L (0.6-1.5) mg/dL Calcium 8.0 L (8.7-10.3) mg/dL Microbiology - Last 24 Hours (Table) 09/25/21 16:41 Anaerobic Culture - Preliminary Hip - Right 09/25/21 16:41 Anaerobic Culture - Preliminary Leg - Right 09/25/21 16:41 Gram Stain - Preliminary Leg - Right Tissue Culture - Preliminary 09/25/21 16:41 Gram Stain - Preliminary Hip - Right Tissue Culture - Preliminary Assessment and Plan Plan: Assessment: #1. Hypotension, postoperative, likely related to hypovolemia, and or anemia, currently improved. #2. Highly elevated d-dimer, with no evidence of DVT or pulmonary embolism on the lower extremity Dopplers or CT angiogram of the chest #3. Acute blood loss anemia, normal outcome of right hip surgery #4. Painful right hip hemiarthroplasty, aseptic loosening of the right hip hemiarthroplasty, status post right revision of the total hip arthroplasty with femoral and acetabular revision and application of negative pressure incisional wound VAC on 09/25/2021 #5. History of a displaced femoral neck fracture on the right several years ago #6. History of hypertension #7. Osteoarthritis #8. Possible adrenal insufficiency, patient has received IV hydrocortisone with improvement in her blood pressure along with other stabilizing treatments. Plan: Blood pressure has significantly improved and has remained stable We can stop the Cortef, we can stop the midodrine We'll monitor her blood pressure tends over the next 24 hours No other specific complaints Continue pain control, continue GI and DVT prophylaxis, antibiotics per surgery If remains stable may consider for discharge home in the next 24 hours I performed a history & physical examination of the patient and discussed their management with my nurse practitioner, Natty Taylor. I reviewed the nurse practitioner's note and agree with the documented findings and plan of care. Lung sounds are positive for dim breath sounds throughout the lung gill. The findings and the impression was discussed with the patient. I attest to the documentation by the nurse practitioner. Time with Patient: Less than 30
--- NOTE | 2021-09-28 17:04 | P.PN ---
Subjective This is a pleasant 66 years old female with past medical history of hypertension, osteoarthritis of the joints, status post right hip replacement, a nd she drinks about 3 beers daily but she denies smoking. She was admitted yesterday for her right hip prosthesis replacement after her initial surgery about 5-6 years ago she continued to have pain in her right with evidence of a septic loosening of the right hip hemiarthroplasty. She had her surgery yesterday and today's postop day #1 for her right revision of the total hip arthroplasty She tolerated the procedure well, this morning she was trying to get up to get her foot and breakfast when she felt dizzy and lightheaded and she had to lie down, her blood pressure was low 91/57. She received 2 L of normal saline Repeat blood pressure is 85/40s. Patient still feeling lightheaded after 2 L of normal saline. Change her Ringer lactate to normal saline at 1 50 mL/h. Patient other than that she denies any chest pain or dyspnea. No abdominal pain. No vomiting. She has one episode of vomiting this morning. No weakness or numbness or blurred vision. Patient states that she has history of hypertension and at certain times she feels lightheadedness, she takes losartan 40 mg daily, she checked her blood pressure with her PCP prior to the surgery and was 110 for systolic BP. Her blood pressure still on the low side therefore we are going to consult cardiology team. Repeat troponin, lactic acid, cortisone/ACTH, we will check a d-dimer as well. Discussed with Dr. Anthony currently we'll come and see the patient as well 09/27/2021 Patient seen this morning in the ICU, she was sitting in chair fully awake and oriented, completely asymptomatic she was feeling happy how she is feeling and all her symptoms resolved. Her blood pressure improved to 123/6500 195. No chest pain or dyspnea. No headache or dizziness or other symptoms. Sodium improved to 136. CT of the chest was negative for pulmonary embolism and showing bilateral atelectasis and mild pleural effusion. Doppler of the leg is negative for DVT. Proctoscopy gallstone is slightly elevated 0.15 Ejection fraction 55-60%. She was still in normal saline at 150 mL per hour. Pressors were off this morning She still on midodrine 10 mg tid, and hydrocortisone 100 mg 3 times a day. We'll try to switch her to Cortef tomorrow 09/28/2021 Patient today seen in the general medical floor, fully awake and oriented, completely asymptomatic. Her blood pressure has been stabilized and her IV fluids were stopped this morning with no drop in blood pressure. Also she did not receive any steroids or midodrine today Her left showing evidence of hemoglobin delusion with WBC 12.6 down to 10.4, hemoglobin 10.3 down to 8.2 and platelets 161 down to 124. Creatinine is normal. The plan is to monitor her for another 24 hours to check for stability of blood pressure. Also she needs insurance authorization for her wound VAC per keycase assembler and primary surgery team. Discussed plan with patient in details and she verbalized understanding and acceptance Objective - Vital Signs Vital signs: Vital Signs Temp 97.9 F 09/28/21 08:00 Pulse 113 H 09/28/21 08:00 Resp 14 09/28/21 08:00 BP 132/67 09/28/21 08:00 Pulse Ox 97 09/28/21 08:00 Intake & Output 09/27/21 09/28/21 09/28/21 18:59 06:59 18:59 Intake Total 736 222 Output Total 600 Balance 136 222 Intake: IV 500 Sodium Chloride 0.9% 1, 500 000 ml @ 50 mls/hr IV . Q20H [facility] Rx#:[id number] Oral 236 222 Output: Urine 600 Other: Voiding Method Toilet Toilet Indwelling Catheter Indwelling Catheter # Voids 2 1 1 - Exam GENERAL: The patient is alert and oriented x3, not in any acute distress. Well developed, well nourished. HEENT: Pupils are round and equally reacting to light. EOMI. No scleral icterus. No conjunctival pallor. Normocephalic, atraumatic. No pharyngeal erythema. No thyromegaly. CARDIOVASCULAR: S1 and S2 present. No murmurs, rubs, or gallops. PULMONARY: Chest is clear to auscultation, no wheezing or crackles. ABDOMEN: Soft, nontender, nondistended, normoactive bowel sounds. No palpable organomegaly. MUSCULOSKELETAL: No joint swelling or deformity. EXTREMITIES: No cyanosis, clubbing, or pedal edema. NEUROLOGICAL: Gross neurological examination did not reveal any focal deficits. SKIN: No rashes. no petechiae. - Labs CBC & Chem 7: 09/28/21 02:58 09/28/21 02:58 Labs: Abnormal Lab Results - Last 24 Hours (Table) 09/28/21 09/28/21 Range/Units 02:58 02:58 WBC 10.91 H (4.50-10.00) X 10*3/uL RBC 2.61 L (4.10-5.20) X 10*6/uL Hgb 8.2 L (12.0-15.0) g/dL Hct 25.6 L (37.2-46.3) % MCV 98.1 H (80.0-97.0) fL Plt Count 124 L (140-440) X 10*3/uL Neutrophils # 7.97 H (1.80-7.70) X 10*3/uL Eosinophils # 0.01 L (0.04-0.35) X 10*3/uL Chloride 112 H (96-109) mmol/L Anion Gap 7.20 L (10.00-18.00) mmol/L BUN 8.0 L (9.0-27.0) mg/dL Creatinine 0.5 L (0.6-1.5) mg/dL Calcium 8.0 L (8.7-10.3) mg/dL Microbiology - Last 24 Hours (Table) 09/25/21 16:41 Anaerobic Culture - Preliminary Hip - Right 09/25/21 16:41 Anaerobic Culture - Preliminary Leg - Right 09/25/21 16:41 Gram Stain - Preliminary Leg - Right Tissue Culture - Preliminary 09/25/21 16:41 Gram Stain - Preliminary Hip - Right Tissue Culture - Preliminary Assessment and Plan Assessment: History of osteoarthritis status post painful aseptic loosening of the right hip hemiarthroplasty. Admitted for revision of the right total hip arthroplasty. Postop hypotension. Improved History of hypertension Possible alcohol abuse Plan: This is a pleasant 66 years old female with right hip surgery and postop hypote nsion Keep monitoring blood pressure while patient is off IV fluid, steroids midodrine Cardiology and pulmonary team on the case as well. Primary orthopedic team following the case Labs and medication were reviewed.. Continue same treatment. Continue with symptomatic treatment. Resume home medication. Monitor lytes and vitals. DVT prophylaxis deferred to orthopedic team . Further recommendations depends on the clinical course of the patient DVT prophylaxis: On aspirin twice a day per orthopedic team GI Prophylaxis: Pepcid Possible discharge in 24 hours if she remains stable
[2021-09-28] MEDS: SENNOSIDES-DOCUSATE SODIUM 1 EACH TAB PO SCH (21:17)
[2021-09-29] MEDS: HYDROcodone/APAP 5-325MG 1 EACH TAB PO PRN ×2 (03:50→12:37)
[2021-09-29] MEDS: LACTATED RINGERS 1,000 ML IV SCH (08:15)
[2021-09-29 08:25] VITALS: BP 135/81; PULSE 98; RESP 18; TEMP 97.8
[2021-09-29] MEDS: FAMOTIDINE 20 MG TAB PO SCH (08:53)
[2021-09-29] MEDS: DOXYCYCLINE 100 MG CAP PO SCH (08:53)
[2021-09-29] MEDS: ASPIRIN 81 MG PO SCH (08:53)
[2021-09-29 09:16] LABS: Basophils % (A) 1 %; Eosinophils # (A) 0.2 k/uL (0-0.7); Eosinophils % (A) 3 %; HCT 27.5 % (34.0-46.0); HGB 8.9 gm/dL (11.4-16.0); Lymphocytes # (A) 1.7 k/uL (1.0-4.8); Lymphocytes % (A) 23 %; MCH 32.8 pg (25.0-35.0); MCHC 32.4 g/dL (31.0-37.0); MCV 101.2 fL (80.0-100.0); Mean Platelet Volume 8.9; Monocytes # (A) 0.4 k/uL (0-1.0); Monocytes % (A) 6 %; Neutrophils # (A) 4.7 k/uL (1.3-7.7); Neutrophils % (A) 66 %; Platelet Count 156 k/uL (150-450); RBC 2.72 m/uL (3.80-5.40); WBC 7.2 k/uL (3.8-10.6)
[2021-09-29 09:22] LABS: African American GFR (CKD) 118.5 (60.0-200.0); Anion Gap 7.4 mmol/L (10.00-18.00); BUN/Creat Ratio 12.6 Ratio (12.00-20.00); Blood Urea Nitrogen 6.3 mg/dL (9.0-27.0); Carbon Dioxide 22.6 mmol/L (20.0-27.5); Non-African American GFR(CKD) 102.3 (60.0-200.0); Potassium 3.7 mmol/L (3.5-5.5)
--- NOTE | 2021-09-29 09:58 | P.DS ---
Providers Date of admission: 09/26/21 14:50 Expected date of discharge: 09/29/21 Attending physician: Marquez Marmolejo Consults: 09/25/21 17:01 Consult Physician Routine Consulting Provider: Oneil Mccabe Consult Reason/Comments: medical management Do you want consulting provider notified?: Yes 09/26/21 12:22 Consult Physician Routine Consulting Provider: Dylan Boyce Consult Reason/Comments: post op hypotension Do you want consulting provider notified?: Already Contacted 09/26/21 13:47 Consult Physician Urgent Consulting Provider: Panfilo Hernandez Consult Reason/Comments: hypotension Do you want consulting provider notified?: Yes Primary care physician: [facility] Course: This is a 66- year old female who was followed in the office by Dr. Duarte for right hip pain. Patient has history of right hip hemiarthroplasty by another physician many years ago for displaced femoral neck fracture. Due to her continued pain, the recommendation was to revise her painful hemiarthroplasty to a right total hip replacement. Patient underwent a right revision total hip arthroplasty on 09/25/[address] Marmolejo. The procedure was performed without complication or sequelae. Patient did develop post-operative hypotension and was transferred to the ICU for 24 hours. Internal medicine, cardiology, pulmonology were consulted. Patient is doing very well at this time and her blood pressures have normalized. Vital signs and labs are stable on postoperative day #4. Patient was examined bedside today. Patient states she is doing great and has no complaints or concerns today. Patient is remaining toe touch weight bearing on the operative extremity with a walker. Patient is tolerating her diet well. Patient is voiding freely. Patient denies chest pain, shortness of breath, nausea, vomiting. Vital signs stable. On examination, patient is sitting up in the bed in no apparent distress. She is alert and orientated x3. On inspection of the right hip, there is a wound vac on that has a good seal. Mild swelling of the thigh, the thigh is soft and compressible. Motor and sensory function intact right lower extremity. Right lower extremity is warm and well perfused. Calf is soft and non-tender to palpation. Patient is discharged home with home health care in good condition, pending medical clearance from all following medical specialties. Patient will follow- up with Dr. Marmolejo in the office in 2 weeks. Please see med rec for accurate list of discharge medication. Plan - Discharge Summary Discharge Rx Participant: No New Discharge Prescriptions: New Docusate [Colace] 100 mg PO BID #60 capsule Doxycycline Monohydrate 100 mg PO BID 42 Days #84 cap Omeprazole 40 mg PO DAILY 30 Days #30 cap HYDROcodone/APAP 5-325MG [Ossian 5-325] 1 tab PO Q6HR PRN 7 Days #28 tab PRN Reason: Pain Aspirin 81 mg PO BID 30 Days #60 tab Diclofenac Sodium [Voltaren] 75 mg PO BID 30 Days #60 tab No Action Citalopram Hydrobromide [CeleXA] 40 mg PO QAM Biotin [Biotin Disolve] 5,000 mcg PO DAILY Cod Liver Oil 2 each PO DAILY Cholecalciferol (Vitamin D3) [Vitamin D3] 1,000 unit PO BID Calcium Carbonate [Calcium] 600 mg PO BID Multivitamins, Thera [Multivitamin (formulary)] 1 tab PO DAILY Garlic 1 each PO DAILY lisinopriL [Zestril] 20 mg PO BID Ibuprofen [Motrin] 800 mg PO TID PRN PRN Reason: Pain Alendronate Sodium [Fosamax] 70 mg PO ROLLE Discharge Medication List Citalopram Hydrobromide [CeleXA] 40 mg PO QAM 07/28/14 [History] Biotin [Biotin Disolve] 5,000 mcg PO DAILY 10/31/17 [History] Calcium Carbonate [Calcium] 600 mg PO BID 10/31/17 [History] Cholecalciferol (Vitamin D3) [Vitamin D3] 1,000 unit PO BID 10/31/17 [History] Cod Liver Oil 2 each PO DAILY 10/31/17 [History] Garlic 1 each PO DAILY 10/31/17 [History] Ibuprofen [Motrin] 800 mg PO TID PRN 10/31/17 [History] Multivitamins, Thera [Multivitamin (formulary)] 1 tab PO DAILY 10/31/17 [History] lisinopriL [Zestril] 20 mg PO BID 10/31/17 [History] Alendronate Sodium [Fosamax] 70 mg PO ROLLE 09/17/21 [History] Aspirin 81 mg PO BID 30 Days #60 tab 09/25/21 [Rx] Diclofenac Sodium [Voltaren] 75 mg PO BID 30 Days #60 tab 09/25/21 [Rx] Docusate [Colace] 100 mg PO BID #60 capsule 09/25/21 [Rx] Doxycycline Monohydrate 100 mg PO BID 42 Days #84 cap 09/25/21 [Rx] Omeprazole 40 mg PO DAILY 30 Days #30 cap 09/25/21 [Rx] HYDROcodone/APAP 5-325MG [Ossian 5-325] 1 tab PO Q6HR PRN 7 Days #28 tab 09/29/21 [Rx] Follow up Appointment(s)/Referral(s): [facility], [NON-STAFF] - ([facility] will call you to schedule your in home physical therapy visits and nursing visits. Your first visit will be on 09/30/[address] the wound vac. ) Angely Montano MD [STAFF PHYSICIAN] - 2 Weeks (cell assembly pinner ) Marquez Marmolejo MD [Medical Doctor] - 2 Weeks Activity/Diet/Wound Care/Special Instructions: Toe touch weight bearing operative extremity with a walker. Keep wound vac on incision until follow-up appointment in the office. Take pain medications as prescribed. Aspirin x 4 weeks for blood clot prevention. Doxycycline x 6 weeks for wound healing prophylaxis. Follow-up in the office in two weeks with Dr. Marmolejo. Call the office with any questions or concerns, For any questions or issues with the wound vac, please call [facility] Discharge Disposition: HOME WITH HOME HEALTH SERVICES
--- NOTE | 2021-09-29 14:27 | P.PN ---
Subjective Progress Note Date: 09/29/21 Principal diagnosis: Hypotension, in the postoperative period, status post right hip revision total hip arthroplasty This is a 66-year-old female that we are asked to see in consultation. The patient is postop day #1, status post right revision total hip arthroplasty and application of the negative pressure incisional wound VAC. The procedure was done by one of the orthopedic surgeons, for painful right hip hemiarthroplasty and aseptic loosening of the right hip hemiarthroplasty. Apparently, the surgery went well. Sometime early this morning, the patient developed hypot ension. A rapid response team was called. The patient was given a couple liters of fluid. She got 1 L of lactated Ringer's, and 1 L normal saline. The hemoglobin is morning was 10.2. The patient apparently became lightheaded and dizzy. She wasn't feeling well. We are asked to see the patient to see whether or not the patient might be better served in the intensive care unit. We saw the patient and her room, her blood pressure was still only about 80 systolic. She was speaking in full sentences. She was lucid and oriented. She was not having any chest pain or chest discomfort. She did have a headache. Laboratory data from today includes a white count of 13.43, hemoglobin 10.2, hematocrit 31.8, and platelet count 169,000. Sodium was 132, potassium 4.4, chlorides 108, CO2 23, anion gap 1, BUN 17, and creatinine 0.88. The patient's AST was 68. Calcium was 7.7. The patient's cortisol level was only 7. Repeat was 14. The patient was not on corticosteroids preoperatively. She did not receive any injections of corticosteroids of any type prior to surgery. Testing for cor onavirus was negative. The patient was seen by the primary service and hydrocortisone was ordered. We decided to move the patient to the intensive care for further monitoring and management. I told the ICU nurse to start the patient on some additional fluids, use norepinephrine to get a systolic pressure above 100 or mean pressure right around 70 mmHg, and add midodrine 10 mg 3 times a day. Progress note dated 09/27/2021. 66-year-old female seen yesterday in consultation. She is postop day #2, status post right revision total hip arthroplasty and application of a negative pressure incisional wound VAC. The patient developed postoperative hypotension. We are asked to see the patient on the general medical floor. We decided to move the patient to the intensive care unit for further monitoring and management. The patient was given midodrine, and norepinephrine. Today, she is on room air. She's getting saline at 150 mL an hour. She had Doppler studies of her legs, which were negative. She had a CT angiogram which was also negative for pulmonary embolism. Her sodium is 136, potassium 4.2, chlorides 115, CO2 21, nightly 10, and creatinine 0.66. Her pro-calcitonin level was 0.15. Cortisol level was 7 and repeat was 14. In my opinion, the patient could be transferred out to the general medical floor. She is doing much better. She feels much improved today. On 09/28/2021 patient seen in follow-up with a surgical floor, she is sitting up in the recliner, breathing comfortably, she is on room air, vital signs have been stable, blood pressure has improved currently at 120/65 with a mean of 83, no fever or chills, room air pulse ox is 97%. Patient denies any pulmonary complaints, her d-dimer was elevated and CTA chest has been completed showing no evidence of pulmonary embolism, a digital bilateral lower lobe interstitial cultures atelectasis with mild pleural effusions. Venous Doppler studies were negative for evidence of DVT in both legs. His labs have been reviewed with blood cell count is improving down to 10.9, hemoglobin is 8.2, platelet count is 124, sodium is 142, potassium is 3.8, chloride is 112, BUN is 8, creatinine 0.5. Pro-costal level is negative at 0.15. Serum cortisol level was only 7 on 09/26/2021, patient was started on IV hydrocortisone which has been converted to oral Cortef today at 10 mg 3 times daily. ACTH was 5.30. Troponin was negative at less than 0.012. Lactic acid was 1.7 On 09/29/2021 patient seen in follow-up. She is awake and alert, in no acute distress, room air pulse ox is 97%. She's had no acute events overnight. She is sitting up in the chair, her blood pressure stable this morning is 135/81, her hydrocortisone has been discontinued, midodrine has been discontinued, his labs have been reviewed, white blood cell count 7.2, hemoglobin is 8.2, platelet count is 156, electrolytes and renal profile were unremarkable. Pro-costal level was negative. Surgical incision is clean dry and intact, covered with the dressing. Objective - Vital Signs Vital signs: Vital Signs Temp 97.8 F 09/29/21 08:00 Pulse 98 09/29/21 08:00 Resp 18 09/29/21 08:00 BP 135/81 09/29/21 08:00 Pulse Ox 97 09/29/21 08:00 Intake & Output 09/28/21 09/29/21 09/29/21 18:59 06:59 18:59 Other: Voiding Method Toilet # Voids 1 2 2 - Exam GENERAL EXAM: Alert, very pleasant, 66-year-old white female, on 2l/min with pulse ox of 97%, comfortable in no apparent distress. HEAD: Normocephalic/atraumatic. EYES: Normal reaction of pupils, equal size. Conjunctiva pink, sclera white. NOSE: Clear with pink turbinates. THROAT: No erythema or exudates. NECK: No masses, no JVD, no thyroid enlargement, no adenopathy. CHEST: No chest wall deformity. Symmetrical expansion. LUNGS: Equal air entry with no crackles, wheeze, rhonchi or dullness. CVS: Regular rate and rhythm, normal S1 and S2, no gallops, no murmurs, no rubs ABDOMEN: Soft, nontender. No hepatosplenomegaly, normal bowel sounds, no guarding or rigidity. EXTREMITIES: No clubbing, no edema, no cyanosis, 2+ pulses and upper and lower extremities. MUSCULOSKELETAL: Muscle strength and tone normal. SPINE: No scoliosis or deformity SKIN: No rashes. Right hip incision is covered with a surgical dressing, clean dry and intact. Hemovac was removed yesterday CENTRAL NERVOUS SYSTEM: Alert and oriented -3. No focal deficits, tone is normal in all 4 extremities. PSYCHIATRIC: Alert and oriented -3. Appropriate affect. Intact judgment and insight. - Labs CBC & Chem 7: 09/29/21 03:36 09/29/21 03:36 Labs: Abnormal Lab Results - Last 24 Hours (Table) 09/29/21 09/29/21 Range/Units 03:36 03:36 RBC 2.72 L (3.80-5.40) m/uL Hgb 8.9 L (11.4-16.0) gm/dL Hct 27.5 L (34.0-46.0) % MCV 101.2 H (80.0-100.0) fL Chloride 111 H (96-109) mmol/L Anion Gap 7.40 L (10.00-18.00) mmol/L BUN 6.3 L (9.0-27.0) mg/dL Creatinine 0.5 L (0.6-1.5) mg/dL Calcium 8.0 L (8.7-10.3) mg/dL Microbiology - Last 24 Hours (Table) 09/25/21 16:41 Gram Stain - Preliminary Leg - Right Tissue Culture - Preliminary 09/25/21 16:41 Gram Stain - Preliminary Hip - Right Tissue Culture - Preliminary Assessment and Plan Plan: Assessment: #1. Hypotension, postoperative, likely related to hypovolemia, and or anemia, currently improved. #2. Highly elevated d-dimer, with no evidence of DVT or pulmonary embolism on the lower extremity Dopplers or CT angiogram of the chest #3. Acute blood loss anemia, normal outcome of right hip surgery #4. Painful right hip hemiarthroplasty, aseptic loosening of the right hip hemiarthroplasty, status post right revision of the total hip arthroplasty with femoral and acetabular revision and application of negative pressure incisional wound VAC on 09/25/2021 #5. History of a displaced femoral neck fracture on the right several years ago #6. History of hypertension #7. Osteoarthritis #8. Possible adrenal insufficiency, patient has received IV hydrocortisone with improvement in her blood pressure along with other stabilizing treatments. Plan: Blood pressure has remained stable Cortef and midodrine has been discontinued Today's vitals reviewed No specific complaints Patient is being discharged home today She stable for discharge home from pulmonary perspective I performed a history & physical examination of the patient and discussed their management with my nurse practitioner, Natty Taylor. I reviewed the nurse practitioner's note and agree with the documented findings and plan of care. Lung sounds are positive for dim breath sounds throughout the lung gill. The findings and the impression was discussed with the patient. I attest to the documentation by the nurse practitioner. Time with Patient: Less than 30
--- NOTE | 2021-09-30 01:19 | P.PN ---
Subjective This is a pleasant 66 years old female with past medical history of hypertension, osteoarthritis of the joints, status post right hip replacement, a nd she drinks about 3 beers daily but she denies smoking. She was admitted yesterday for her right hip prosthesis replacement after her initial surgery about 5-6 years ago she continued to have pain in her right with evidence of a septic loosening of the right hip hemiarthroplasty. She had her surgery yesterday and today's postop day #1 for her right revision of the total hip arthroplasty She tolerated the procedure well, this morning she was trying to get up to get her foot and breakfast when she felt dizzy and lightheaded and she had to lie down, her blood pressure was low 91/57. She received 2 L of normal saline Repeat blood pressure is 85/40s. Patient still feeling lightheaded after 2 L of normal saline. Change her Ringer lactate to normal saline at 1 50 mL/h. Patient other than that she denies any chest pain or dyspnea. No abdominal pain. No vomiting. She has one episode of vomiting this morning. No weakness or numbness or blurred vision. Patient states that she has history of hypertension and at certain times she feels lightheadedness, she takes losartan 40 mg daily, she checked her blood pressure with her PCP prior to the surgery and was 110 for systolic BP. Her blood pressure still on the low side therefore we are going to consult cardiology team. Repeat troponin, lactic acid, cortisone/ACTH, we will check a d-dimer as well. Discussed with Dr. Anthony currently we'll come and see the patient as well 09/27/2021 Patient seen this morning in the ICU, she was sitting in chair fully awake and oriented, completely asymptomatic she was feeling happy how she is feeling and all her symptoms resolved. Her blood pressure improved to 123/6500 195. No chest pain or dyspnea. No headache or dizziness or other symptoms. Sodium improved to 136. CT of the chest was negative for pulmonary embolism and showing bilateral atelectasis and mild pleural effusion. Doppler of the leg is negative for DVT. Proctoscopy gallstone is slightly elevated 0.15 Ejection fraction 55-60%. She was still in normal saline at 150 mL per hour. Pressors were off this morning She still on midodrine 10 mg tid, and hydrocortisone 100 mg 3 times a day. We'll try to switch her to Cortef tomorrow 09/28/2021 Patient today seen in the general medical floor, fully awake and oriented, completely asymptomatic. Her blood pressure has been stabilized and her IV fluids were stopped this morning with no drop in blood pressure. Also she did not receive any steroids or midodrine today Her left showing evidence of hemoglobin delusion with WBC 12.6 down to 10.4, hemoglobin 10.3 down to 8.2 and platelets 161 down to 124. Creatinine is normal. The plan is to monitor her for another 24 hours to check for stability of blood pressure. Also she needs insurance authorization for her wound VAC per field nurse case manager and primary surgery team. Discussed plan with patient in details and she verbalized understanding and acceptance 09/29/2021 Patient remains clinically stable fully awake and oriented with stable blood pressure despite she is off IV fluids, pressors, steroids or midodrine . Also her labs are stable. Her ejection fraction is 55-60%. Wound VAC is in place. Patient is medically stable for discharge today. Also once she was cleared for discharge by other consultants. Nevertheless patient was instructed to follow up with custody assistant Dr. Montano in 2 weeks and her PCP Dr. Mace in one week and she agrees to call and make appointment Objective - Vital Signs Vital signs: Vital Signs Temp 97.8 F 09/29/21 08:00 Pulse 98 09/29/21 08:00 Resp 18 09/29/21 08:00 BP 135/81 09/29/21 08:00 Pulse Ox 97 09/29/21 08:00 Intake & Output 09/28/21 09/29/21 09/29/21 18:59 06:59 18:59 Other: Voiding Method Toilet # Voids 1 2 - Exam GENERAL: The patient is alert and oriented x3, not in any acute distress. Well developed, well nourished. HEENT: Pupils are round and equally reacting to light. EOMI. No scleral icterus. No conjunctival pallor. Normocephalic, atraumatic. No pharyngeal erythema. No thyromegaly. CARDIOVASCULAR: S1 and S2 present. No murmurs, rubs, or gallops. PULMONARY: Chest is clear to auscultation, no wheezing or crackles. ABDOMEN: Soft, nontender, nondistended, normoactive bowel sounds. No palpable organomegaly. MUSCULOSKELETAL: No joint swelling or deformity. EXTREMITIES: No cyanosis, clubbing, or pedal edema. NEUROLOGICAL: Gross neurological examination did not reveal any focal deficits. SKIN: No rashes. no petechiae. - Labs CBC & Chem 7: 09/29/21 03:36 09/29/21 03:36 Labs: Abnormal Lab Results - Last 24 Hours (Table) 09/29/21 09/29/21 Range/Units 03:36 03:36 RBC 2.72 L (3.80-5.40) m/uL Hgb 8.9 L (11.4-16.0) gm/dL Hct 27.5 L (34.0-46.0) % MCV 101.2 H (80.0-100.0) fL Chloride 111 H (96-109) mmol/L Anion Gap 7.40 L (10.00-18.00) mmol/L BUN 6.3 L (9.0-27.0) mg/dL Creatinine 0.5 L (0.6-1.5) mg/dL Calcium 8.0 L (8.7-10.3) mg/dL Microbiology - Last 24 Hours (Table) 09/25/21 16:41 Gram Stain - Preliminary Leg - Right Tissue Culture - Preliminary 09/25/21 16:41 Gram Stain - Preliminary Hip - Right Tissue Culture - Preliminary Assessment and Plan Assessment: History of osteoarthritis status post painful aseptic loosening of the right hip hemiarthroplasty. Admitted for revision of the right total hip arthroplasty. Postop hypotension. Improved History of hypertension Possible alcohol abuse Plan: This is a pleasant 66 years old female with right hip surgery and postop hypotension Patient blood pressure is stable off medication Cardiology and pulmonary team on the case as well. Primary orthopedic team following the case Labs and medication were reviewed.. Continue same treatment. Continue with symptomatic treatment. Resume home medication. Monitor lytes and vitals. DVT prophylaxis deferred to orthopedic team . Further recommendations depends on the clinical course of the patient DVT prophylaxis: On aspirin twice a day per orthopedic team GI Prophylaxis: Pepcid Patient stable from a medical point of view for discharge but needs outpatient follow-up as above and discharge instructions
== END 2021-09-29 15:28 | disposition home health service (06) | DRG 467 ==
LOC: OR 10:50 → 4SSUR 16:50 → 2SICU 09-26 14:49 → OR 09-26 15:46 → 4SSUR 09-27 12:10
PROVIDERS: ADMIT Orthopaedic Surgery; ATTEND Orthopaedic Surgery
PROC: 0SPA0JZ Removal of Synthetic Substitute from Right Hip Joint, Acetabular Surface, Open Approach (ICD-10-PCS; 2021-09-25)
PROC: 0SRA0JZ Replacement of Right Hip Joint, Acetabular Surface with Synthetic Substitute, Open Approach (ICD-10-PCS; 2021-09-25)
PROC: 0SPR0JZ Removal of Synthetic Substitute from Right Hip Joint, Femoral Surface, Open Approach (ICD-10-PCS; 2021-09-25)
PROC: 0SRR0JZ Replacement of Right Hip Joint, Femoral Surface with Synthetic Substitute, Open Approach (ICD-10-PCS; principal; 2021-09-25 12:30)
DX: T84.030A Mechanical loosening of internal right hip prosthetic joint, initial encounter (principal); D62 Acute posthemorrhagic anemia; E27.40 Unspecified adrenocortical insufficiency; I95.89 Other hypotension; M16.11 Unilateral primary osteoarthritis, right hip; Z20.822 Contact with and (suspected) exposure to COVID-19; Y83.8 Other surgical procedures as the cause of abnormal reaction of the patient, or of later complication, without mention of misadventure at the time of the procedure; Z96.641 Presence of right artificial hip joint; E86.1 Hypovolemia; I10 Essential (primary) hypertension; K80.20 Calculus of gallbladder without cholecystitis without obstruction; Z87.81 Personal history of (healed) traumatic fracture; Z79.82 Long term (current) use of aspirin; Z79.83 Long term (current) use of bisphosphonates; Z79.899 Other long term (current) drug therapy; Z82.5 Family history of asthma and other chronic lower respiratory diseases
CPT/HCPCS: 71275; 73501; 80048; 80053; 82024; 82306; 82533; 83605; 83735; 84145; 84443; 84484; 85025; 85379; 86850; 86891; 86900; 86901; 87070; 87075; 87205; 87635; 93005; 93306; 93970

== ENCOUNTER → 2022-08-04 | Outpatient (CLI) | payer OTHER ==
--- NOTE | 2022-08-05 08:55 | MM ---
Reason for Exam: Screening (asymptomatic). Last screening mammogram was performed 12 month(s) ago. Patient History: Menarche at age 18. First Full-Term at age 24. Postmenopausal. Patient has history of breast feeding. Maternal aunt had breast cancer, age 80. Risk Values: Lucy 5 year model risk: 1.4%. NCI Lifetime model risk: 5.1%. Prior Study Comparison: 02/08/2017 Bilateral Screening Mammogram, [facility]. 02/13/2018 Bilateral Screening Mammogram, [facility]. 02/26/2019 Bilateral Screening Mammogram, [facility]. 03/28/2020 Bilateral Screening Mammogram, [facility]. 08/03/2021 Bilateral Screening Mammogram, [facility]. Tissue Density: There are scattered fibroglandular densities. Findings: Analyzed By CAD. There is no suspicious group of microcalcifications or new suspicious mass in either breast. Overall Assessment: Negative, BI-RAD 1 Management: Screening Mammogram of both breasts in 1 year. A clinical breast exam by your physician is recommended on an annual basis and results should be correlated with mammographic findings. Electronically signed and approved by: Shankar Ferro M.D. Radiologis
== END | disposition home or self-care (01) ==
LOC: RADMAMWWP 08:39
PROVIDERS: ATTEND Internal Medicine
DX: Z12.31 Encounter for screening mammogram for malignant neoplasm of breast (principal); Z78.0 Asymptomatic menopausal state; Z80.3 Family history of malignant neoplasm of breast
CPT/HCPCS: 77067

== ENCOUNTER → 2023-08-05 | Outpatient (CLI) | payer SELFPAY ==
--- NOTE | 2023-08-08 19:32 | MM ---
Reason for Exam: Screening (asymptomatic). Last screening mammogram was performed 12 month(s) ago. Patient History: Menarche at age 18. First Full-Term at age 24. Postmenopausal. Patient has history of breast feeding. Maternal aunt had breast cancer, age 80. Risk Values: Lucy 5 year model risk: 1.4%. NCI Lifetime model risk: 4.9%. Prior Study Comparison: 03/28/2020 Bilateral Screening Mammogram, [facility]. 08/03/2021 Bilateral Screening Mammogram, [facility]. 08/04/2022 Bilateral MG screening mammo w CAD, [facility]. Tissue Density: There are scattered fibroglandular densities. Findings: Analyzed By CAD. Unchanged areas of bilateral asymmetric densities. There is no suspicious group of microcalcifications or new suspicious mass in either breast. Overall Assessment: Benign, BI-RAD 2 Management: Screening Mammogram of both breasts in 1 year. . Patient should continue monthly self-breast exams. A clinical breast exam by your physician is recommended on an annual basis. This exam should not preclude additional follow-up of suspicious palpable abnormalities. Note on Lucy scores and lifetime risk: 1. A Lucy score greater than 3% is considered moderate risk. If this is the case, consider specialist referral to assess eligibility for a risk reducing agent. 2. If overall lifetime risk for the development of breast cancer is 20% or higher, the patient may qualify for future screening with alternating mammogram and breast MRI. Electronically signed and approved by: Jacquelyn Mitchell M.D. Radiologist
== END | disposition home or self-care (01) ==
LOC: RADMAMWWP 07:51
PROVIDERS: ATTEND Internal Medicine
DX: Z12.31 Encounter for screening mammogram for malignant neoplasm of breast (principal); Z78.0 Asymptomatic menopausal state; Z80.3 Family history of malignant neoplasm of breast
CPT/HCPCS: 77067

== ENCOUNTER → 2023-10-26 | Outpatient (CLI) | payer OTHER ==
--- NOTE | 2023-10-26 21:20 | BD ---
EXAMINATION TYPE: Axial Bone Density DATE OF EXAM: 10/26/2023 CLINICAL HISTORY: 68 years old Female. ICD-10 CODE: N95.8 OTHER SPECIFIED MENOPAUSAL AND PERIMENOPAU SA Height: 64in Weight: 176lb FRAX RISK QUESTIONS: Alcohol (3 or more units per day): yes Family History (Parent hip fracture): yes History of Fracture in Adulthood: yes Secondary Osteoporosis: RISK FACTORS HISTORY OF: Hip Fracture (Right/Left): yes When: 2013 Surgery to Spine/Hip(right/left)/Wrist (right/left): right hip replacement When: 2013 MEDICATIONS: Osteoporosis Medications: Which medication: Fosamax How Long: about 3 years EXAM MEASUREMENTS: Bone mineral densitometry was performed using the sougou System. Bone mineral density as measured about the Lumbar spine is: ----- L1-L4(G/cm2): 1.216 T Score Values are as follows: ----- L1: 0.5 ----- L2: 0.0 ----- L3: -0.5 ----- L4: 1.1 ----- L1-L4: 0.3 Z Score Values are as follows: ----- L1: 1.6 ----- L2: 1.1 ----- L3: 0.6 ----- L4: 2.2 ----- L1-L4: 1.4 Bone mineral density has: Increased 9.5% since study of: 06-03-21 Bone mineral density about the L hip (g/cm2): 0.798 T Score values are as follows: L Neck: -1.0 ----- -----L Total: -1.7 Z Score values are as follows: -----L Neck: 0.2 -----L Total: -0.8 Bone mineral density has: Increased 3.2% since study of: 06-03-21 FRAX%s: The graph provided illustrates a 27.5% chance for a major osteoporotic fx and a 2% chance for the hips probability for fx in 10 years time. IMPRESSION: Osteopenia (T Score between -2.5 and -1). There is slightly increased risk of fracture and the patient may be considered for treatment. Re-Screen 2-5 years. NOTE: T-SCORE=SD OF THE YOUNG ADULT MEAN.
== END | disposition home or self-care (01) ==
LOC: RADBDWWP 06:53
PROVIDERS: ATTEND Internal Medicine
DX: M85.80 Other specified disorders of bone density and structure, unspecified site (principal); M85.88 Other specified disorders of bone density and structure, other site; N95.8 Other specified menopausal and perimenopausal disorders; Z96.641 Presence of right artificial hip joint
CPT/HCPCS: 77080

== ENCOUNTER → 2024-08-06 | Outpatient (CLI) | payer OTHER ==
--- NOTE | 2024-08-07 13:02 | MM ---
Reason for Exam: Screening (asymptomatic). Last screening mammogram was performed 12 month(s) ago. Patient History: Menarche at age 18. First Full-Term at age 24. Postmenopausal. Patient has history of breast feeding. Maternal aunt had breast cancer, age 80. Risk Values: Lucy 5 year model risk: 1.4%. NCI Lifetime model risk: 4.8%. Prior Study Comparison: 08/03/2021 Bilateral Screening Mammogram, [facility]. 08/04/2022 Bilateral MG screening mammo w CAD, [facility]. 08/05/2023 Bilateral MG screening mammo w CAD, [facility]. Tissue Density: There are scattered areas of fibroglandular density. Findings: Analyzed By CAD. Right breast: There is no suspicious group of microcalcifications or new suspicious mass. Left breast: There is no suspicious group of microcalcifications or new suspicious mass. Overall Assessment: Negative, BI-RAD 1 Management: Screening Mammogram of both breasts in [address] [facility] will attempt to contact patient to return for supplemental views and ultrasound if indicated. Patient should continue monthly self-breast exams. A clinical breast exam by your physician is recommended on an annual basis. This exam should not preclude additional follow-up of suspicious palpable abnormalities. Note on Lucy scores and lifetime risk: 1. A Lucy score greater than 3% is considered moderate risk. If this is the case, consider specialist referral to assess eligibility for a risk reducing agent. 2. If overall lifetime risk for the development of breast cancer is 20% or higher, the patient may qualify for future screening with alternating mammogram and breast MRI. [facility], , 08/07/2024 12:58 PM. Electronically signed and approved by: Panfilo Aburto DO
== END | disposition home or self-care (01) ==
LOC: RADMAMWWP 09:16
PROVIDERS: ATTEND Internal Medicine
DX: Z12.31 Encounter for screening mammogram for malignant neoplasm of breast (principal); Z78.0 Asymptomatic menopausal state; Z80.3 Family history of malignant neoplasm of breast; R92.323 Mammographic fibroglandular density, bilateral breasts
CPT/HCPCS: 77067